=== PATIENT | female | born 1980 | race Caucasian/White ===

== ENCOUNTER → 2019-11-25 08:43 | Outpatient (BNVA) | payer MEDICAID, SELFPAY | PROVIDERS: Family Provider Nurse Practitioner Family; PCP Nurse Practitioner Family; Visit Provider Psychiatry & Neurology Psychiatry | DX: F20.9 Schizophrenia, unspecified (principal) | CPT/HCPCS: 99204 ==

== ENCOUNTER → 2019-12-08 10:25 | Outpatient (BNVA) | payer MEDICAID, SELFPAY | PROVIDERS: Family Provider Nurse Practitioner Family; PCP Nurse Practitioner Family; Visit Provider Psychiatry & Neurology Psychiatry | DX: F20.9 Schizophrenia, unspecified (principal) | CPT/HCPCS: 99213 ==

== ENCOUNTER → 2019-12-11 08:24 | Outpatient (BNVA) | payer MEDICAID, SELFPAY | PROVIDERS: Family Provider Nurse Practitioner Family; PCP Nurse Practitioner Family; Visit Provider Counselor Professional | DX: F20.9 Schizophrenia, unspecified (principal) | CPT/HCPCS: 90834 ==

== ENCOUNTER → 2019-12-18 09:27 | Outpatient (BNVA) | payer MEDICAID, SELFPAY | PROVIDERS: Family Provider Nurse Practitioner Family; PCP Nurse Practitioner Family; Visit Provider Counselor Professional | DX: F20.9 Schizophrenia, unspecified (principal) | CPT/HCPCS: 90834 ==

== ENCOUNTER → 2020-02-03 08:08 | Outpatient (BNVA) | payer MEDICAID, SELFPAY | PROVIDERS: Family Provider Nurse Practitioner Family; PCP Nurse Practitioner Family; Visit Provider Counselor Professional | DX: F20.9 Schizophrenia, unspecified (principal) | CPT/HCPCS: 90834 ==

== ENCOUNTER → 2020-02-12 08:44 | Outpatient (BNVA) | payer MEDICAID, SELFPAY | PROVIDERS: Family Provider Nurse Practitioner Family; PCP Nurse Practitioner Family; Visit Provider Counselor Professional | DX: F20.9 Schizophrenia, unspecified (principal) | CPT/HCPCS: 90834 ==

== ENCOUNTER → 2020-02-19 08:09 | Outpatient (BNVA) | payer MEDICAID, SELFPAY | PROVIDERS: Family Provider Nurse Practitioner Family; PCP Nurse Practitioner Family; Visit Provider Counselor Professional | DX: F20.9 Schizophrenia, unspecified (principal) | CPT/HCPCS: 90834 ==

== ENCOUNTER → 2020-03-02 08:31 | Outpatient (BNVA) | payer MEDICAID, SELFPAY | PROVIDERS: Family Provider Nurse Practitioner Family; PCP Nurse Practitioner Family; Visit Provider Counselor Professional | DX: F20.9 Schizophrenia, unspecified (principal) | CPT/HCPCS: 90834 ==

== ENCOUNTER → 2020-03-09 07:50 | Outpatient (BNVA) | payer MEDICAID, SELFPAY | PROVIDERS: Family Provider Nurse Practitioner Family; PCP Nurse Practitioner Family; Visit Provider Psychiatry & Neurology Psychiatry | DX: F20.9 Schizophrenia, unspecified (principal); F15.21 Other stimulant dependence, in remission | CPT/HCPCS: 99213 ==

== ENCOUNTER → 2020-03-16 08:24 | Outpatient (BNVA) | payer MEDICAID, SELFPAY | PROVIDERS: Family Provider Nurse Practitioner Family; PCP Nurse Practitioner Family; Visit Provider Counselor Professional | DX: F20.9 Schizophrenia, unspecified (principal); F15.21 Other stimulant dependence, in remission | CPT/HCPCS: 90834 ==

== ENCOUNTER → 2020-03-30 08:32 | Outpatient (BNVA) | payer MEDICAID, SELFPAY | PROVIDERS: Family Provider Nurse Practitioner Family; PCP Nurse Practitioner Family; Visit Provider Counselor Professional | DX: F20.9 Schizophrenia, unspecified (principal); F15.21 Other stimulant dependence, in remission | CPT/HCPCS: 90832 ==

== ENCOUNTER → 2020-06-28 08:29 | Outpatient (BNVA) | payer MEDICAID, SELFPAY | PROVIDERS: Family Provider Nurse Practitioner Family; PCP Nurse Practitioner Family; Visit Provider Psychiatry & Neurology Psychiatry | DX: F20.9 Schizophrenia, unspecified (principal); F15.21 Other stimulant dependence, in remission | CPT/HCPCS: 99213 ==

== ENCOUNTER → 2020-07-13 09:46 | Outpatient (BNVA) | payer OTHER, SELFPAY | PROVIDERS: Family Provider Nurse Practitioner Family; PCP Nurse Practitioner Family; Visit Provider Counselor Professional | DX: F15.21 Other stimulant dependence, in remission (principal); F20.9 Schizophrenia, unspecified | CPT/HCPCS: 90834 ==

== ENCOUNTER → 2020-07-29 07:58 | Outpatient (BNVA) | payer MEDICAID, SELFPAY | PROVIDERS: Family Provider Nurse Practitioner Family; PCP Nurse Practitioner Family; Visit Provider Counselor Professional | DX: F20.9 Schizophrenia, unspecified (principal); F15.21 Other stimulant dependence, in remission | CPT/HCPCS: 90834 ==

== ENCOUNTER → 2020-08-17 08:39 | Outpatient (BNVA) | payer OTHER, SELFPAY | PROVIDERS: Family Provider Nurse Practitioner Family; PCP Nurse Practitioner Family; Visit Provider Counselor Professional | DX: F15.21 Other stimulant dependence, in remission (principal); F20.9 Schizophrenia, unspecified | CPT/HCPCS: 90832 ==

== ENCOUNTER → 2020-09-07 08:27 | Outpatient (BNVA) | payer MEDICAID, SELFPAY | PROVIDERS: Family Provider Nurse Practitioner Family; PCP Nurse Practitioner Family; Visit Provider Counselor Professional | DX: F15.21 Other stimulant dependence, in remission (principal); F20.9 Schizophrenia, unspecified | CPT/HCPCS: 90834 ==

== ENCOUNTER 2020-09-08 16:46 | Emergency (ER) | payer MEDICAID, SELFPAY ==
[2020-09-08 16:50] VITALS: BP 106/69; PULSE 98; RESP 16; TEMP 36.8; O2SAT 98; BMI 27.3
--- NOTE | 2020-09-08 17:02 | ED_ITS ---
HPI - Psych General: Chief Complaint: Psychiatric Symptoms Stated Complaint: suicidal, hearing voices Time Seen by Provider: 09/08/20 16:57 Source: patient Mode of arrival: ambulatory Limitations: no limitations History of Present Illness: HPI Narrative: 40-year-old female states she is a history of schizophrenia. States her in the week she was hearing some voices telling her to hurt her self. She states she followed up and had her meds increased and the voices of symptoms stopped. She denies any suicidal ideation states she is not hearing any voices. She states. She had called her and told her she need to come up and be seen by the psychiatrist. Denies any fever. Has no suicidality at this time. Associated symptoms: Reports auditory hallucinations and depression Review of Systems Const: Denies: fever(s), chills, body aches or change in appetite Eyes: Denies: blurry vision or eye discomfort ENMT: Denies: throat pain or dental pain Card: Denies: chest pain Resp: Denies: dyspnea GI: Denies: abdominal pain, nausea, vomiting or diarrhea : Denies: dysuria Musc: Denies: neck pain or back pain Skin/Breast: Denies: rash Neuro: Denies: headache(s) Psych: Reports: depression and auditory hallucinations Yves/Lymph: Denies: easy bruising All/Imm: Denies: urticaria PFSH ED PFSH: Medical History Tubal Surgical History H/O: hysterectomy Social History Smoking and tobacco status: current every day smoker cigarettes Packs smoked per day: 1.5 Years cigarettes smoked: 17 Quit status (tobacco): has tried quititng Number of times tried to quit tobacco: 3 Second hand smoke exposure: Yes Smoking risk assessment/counseling performed?: Yes Tobacco counseling given: counseling >3 minutes Physical Exam Const: COMMON NORMALS: no acute distress, patient oriented x3 and healthy appearing HENMT: COMMON NORMALS: normocephalic and atraumatic HEAD & SCALP: normocephalic and atraumatic Eye: COMMON NORMALS: Equal, round and reactive pupils present and EOMs intact bilaterally PUPIL: Yes Equal, round and reactive pupils present Neck/C-Spine: COMMON NORMALS: full ROM and supple Chest: COMMONS NORMALS: normal inspection of the chest and normal palpation of entire chest wall Resp: COMMON NORMALS: normal respiratory effort, No retractions, No use of accessory muscles and clear to auscultation bilaterally AUSCULTATION: clear to auscultation bilaterally Cardio: COMMON NORMALS: regular rate, regular rhythm and No murmurs present (Cardio) RATE: regular rate RHYTHM: regular rhythm GI: COMMON NORMALS: Normal to inspection, nondistended, normoactive bowel sounds present, Soft to palpation, non-tender and no masses PALPATION: Yes Soft to palpation Extremity: COMMON NORMALS: normal to inspection and full ROM Neuro: COMMON NORMALS: patient oriented x3, moves all extremities and no focal motor deficits Psych: COMMON NORMALS: mental status grossly normal, Normal thought process present and cooperative THOUGHT PROCESS: Normal thought process present Skin: COMMON NORMALS: no rashes or lesions noted and no wounds GENERAL SKIN EXAM: no rashes or lesions noted MDM - Psych MDM Narrative: Medical decision making narrative: Patient presents here with hallucinations that is since resolved. Dr. Ayala who came and saw patient does not not believe she requires admission as her hallucinations improved and she is not suicidal. Patient is stable for discharge is to follow-up with her psychiatrist and return if worsening. Lab Data: Labs: Lab Results 09/08/20 09/08/20 Range/Units 17:12 17:12 HCG, Qual Negative (Negative) Urine Opiates Scre en Positive H (Negative) ng/mL Ur Barbiturates Sc reen Negative (Negative) ng/mL Ur Phencyclidine S crn Negative (Negative) ng/mL Ur Amphetamines Sc reen Positive H (Negative) ng/mL U Benzodiazepines Scrn Negative (Negative) ng/mL Urine Cocaine Scre en Negative (Negative) ng/mL U Marijuana (THC) Screen Negative (Negative) ng/mL Discharge Plan Discharge Patient Disposition: Home Clinical Impression: Auditory hallucination Condition: Stable Prescriptions: No Action duloxetine [Cymbalta] 30 mg capsule,delayed release(DR/EC) 30 mg PO DAILY Qty: 30 RF: 2 risperidone [Risperdal] 1 mg tablet 1 mg PO BID Qty: 60 RF: 2 Tylenol Extra Strength 500 mg Tablet 500 - 1,000 mg PO PRN RF: 0 trazodone 50 mg tablet 100 mg PO BEDTIME RF: 0 Discharge Orders: Discharge Order (Routine); Ordered 09/08/20 Ordered By: Rocío Timmons Referrals: Lottie Landry FNP-C [Primary Care Provider] - Discharge Diet: Advance as tolerated Discharge Activity: Resume usual activity Patient Instructions: Schizophrenia (ED) Discharge Date/Time: 09/08/20 18:01 Coding Level of Care Code ED [employer] Zone Assembler for Arg Fwd Exam Comprehensive
--- NOTE | 2020-09-08 17:52 | PC.NURSE ---
psychiatrist in room to speak with pt
[2020-09-08 17:56] LABS: HCG Qualitative Urine. Negative (Negative)
[2020-09-08 18:05] LABS: Amphetamines Screen Urine Positive (Negative); Barbiturates Screen Urine Negative (Negative); Benzodiazepines Screen Urine Negative (Negative); Cocaine Screen Urine Negative (Negative); Opiate Screen Urine Positive (Negative); PCP Screen Urine Negative (Negative); THC Screen Urine Negative (Negative)
== END 2020-09-08 18:01 | disposition home or self-care (01) ==
PROVIDERS: Emergency Provider Emergency Medicine; PCP Nurse Practitioner Family
DX: R44.0 Auditory hallucinations (principal); F17.210 Nicotine dependence, cigarettes, uncomplicated
CPT/HCPCS: 12345; 80306; 81025; 99284

== ENCOUNTER → 2020-09-14 07:50 | Outpatient (BNVA) | payer OTHER, SELFPAY | PROVIDERS: PCP Nurse Practitioner Family; Visit Provider Psychiatry & Neurology Psychiatry | DX: R44.0 Auditory hallucinations (principal); F15.21 Other stimulant dependence, in remission | CPT/HCPCS: 99213 ==

== ENCOUNTER → 2020-09-23 08:18 | Outpatient (BNVA) | payer MEDICAID, SELFPAY | PROVIDERS: Family Provider Nurse Practitioner Family; PCP Nurse Practitioner Family; Visit Provider Counselor Professional | DX: F15.21 Other stimulant dependence, in remission (principal); F44.0 Dissociative amnesia; F20.9 Schizophrenia, unspecified | CPT/HCPCS: 90832 ==

== ENCOUNTER → 2020-10-07 08:10 | Outpatient (BNVA) | payer MEDICAID, SELFPAY | PROVIDERS: Family Provider Nurse Practitioner Family; PCP Nurse Practitioner Family; Visit Provider Counselor Professional | DX: F15.21 Other stimulant dependence, in remission (principal); F20.9 Schizophrenia, unspecified | CPT/HCPCS: 90834 ==

== ENCOUNTER → 2020-10-12 07:53 | Outpatient (BNVA) | payer MEDICAID, SELFPAY | PROVIDERS: Family Provider Nurse Practitioner Family; PCP Nurse Practitioner Family; Visit Provider Psychiatry & Neurology Psychiatry | DX: F20.9 Schizophrenia, unspecified (principal); F15.21 Other stimulant dependence, in remission; R44.0 Auditory hallucinations | CPT/HCPCS: 99213 ==

== ENCOUNTER → 2020-10-26 08:11 | Outpatient (BNVA) | payer MEDICAID, SELFPAY | PROVIDERS: Family Provider Nurse Practitioner Family; PCP Nurse Practitioner Family; Visit Provider Counselor Professional | DX: F15.21 Other stimulant dependence, in remission (principal); F20.9 Schizophrenia, unspecified | CPT/HCPCS: 90832 ==

== ENCOUNTER → 2020-12-08 11:26 | Outpatient (BNVA) | payer MEDICAID, SELFPAY | PROVIDERS: Family Provider Nurse Practitioner Family; PCP Nurse Practitioner Family; Visit Provider Nurse Practitioner Family | DX: M54.6 Pain in thoracic spine (principal); M54.5 Low back pain; M54.2 Cervicalgia | CPT/HCPCS: 72040; 72072; 72100 ==

== ENCOUNTER → 2021-01-03 08:53 | Outpatient (BNVA) | payer MEDICAID, SELFPAY | PROVIDERS: Family Provider Nurse Practitioner Family; PCP Nurse Practitioner Family; Visit Provider Counselor Professional | DX: F20.9 Schizophrenia, unspecified (principal); F15.21 Other stimulant dependence, in remission | CPT/HCPCS: 90834 ==

== ENCOUNTER → 2021-01-04 08:58 | Outpatient (BNVA) | payer MEDICAID, SELFPAY | PROVIDERS: Family Provider Nurse Practitioner Family; PCP Nurse Practitioner Family; Visit Provider Psychiatry & Neurology Psychiatry | DX: F20.9 Schizophrenia, unspecified (principal); F15.21 Other stimulant dependence, in remission; R44.0 Auditory hallucinations | CPT/HCPCS: 99214 ==

== ENCOUNTER → 2021-01-12 08:19 | Outpatient (BNVA) | payer OTHER, SELFPAY | PROVIDERS: Family Provider Nurse Practitioner Family; PCP Nurse Practitioner Family; Visit Provider Counselor Professional | DX: F15.21 Other stimulant dependence, in remission (principal); F20.9 Schizophrenia, unspecified | CPT/HCPCS: 90832 ==

== ENCOUNTER → 2021-02-03 12:08 | Outpatient (BNVA) | payer MEDICAID, SELFPAY | PROVIDERS: Family Provider Nurse Practitioner Family; PCP Nurse Practitioner Family; Visit Provider Psychiatry & Neurology Psychiatry | DX: F20.9 Schizophrenia, unspecified (principal); F15.21 Other stimulant dependence, in remission; R44.0 Auditory hallucinations | CPT/HCPCS: 99214 ==

== ENCOUNTER → 2021-03-10 08:36 | Outpatient (BNVA) | payer MEDICAID, SELFPAY | PROVIDERS: Family Provider Nurse Practitioner Family; PCP Nurse Practitioner Family; Visit Provider Psychiatry & Neurology Psychiatry | DX: F20.9 Schizophrenia, unspecified (principal); F15.21 Other stimulant dependence, in remission | CPT/HCPCS: 99213 ==

== ENCOUNTER → 2021-05-26 07:41 | Outpatient (BNVA) | payer OTHER, MEDICAID, SELFPAY | PROVIDERS: Family Provider Nurse Practitioner Family; PCP Nurse Practitioner Family; Visit Provider Counselor Professional | DX: F15.21 Other stimulant dependence, in remission (principal); F20.9 Schizophrenia, unspecified | CPT/HCPCS: 90832 ==

== ENCOUNTER → 2021-06-23 10:32 | Outpatient (BNVA) | payer OTHER, MEDICAID, SELFPAY | PROVIDERS: Family Provider Nurse Practitioner Family; PCP Nurse Practitioner Family; Visit Provider Psychiatry & Neurology Psychiatry | DX: F20.9 Schizophrenia, unspecified (principal); F15.21 Other stimulant dependence, in remission | CPT/HCPCS: 99213 ==

== ENCOUNTER → 2021-07-18 09:00 | Outpatient (BNVA) | payer OTHER, SELFPAY | PROVIDERS: Family Provider Nurse Practitioner Family; PCP Nurse Practitioner Family; Visit Provider Counselor Professional | DX: F20.9 Schizophrenia, unspecified (principal); F15.21 Other stimulant dependence, in remission | CPT/HCPCS: 90834 ==

== ENCOUNTER → 2021-07-26 08:23 | Outpatient (BNVA) | payer OTHER, SELFPAY | PROVIDERS: Family Provider Nurse Practitioner Family; PCP Nurse Practitioner Family; Visit Provider Counselor Professional | DX: F20.9 Schizophrenia, unspecified (principal); F15.21 Other stimulant dependence, in remission | CPT/HCPCS: 90832 ==

== ENCOUNTER → 2021-09-02 10:05 | Outpatient (BNVA) | payer OTHER, MEDICAID, SELFPAY | PROVIDERS: Family Provider Nurse Practitioner Family; PCP Nurse Practitioner Family; Visit Provider Psychiatry & Neurology Psychiatry | DX: F20.9 Schizophrenia, unspecified (principal); F15.21 Other stimulant dependence, in remission; M54.2 Cervicalgia; M54.6 Pain in thoracic spine | CPT/HCPCS: 99214 ==

== ENCOUNTER → 2021-09-13 07:36 | Outpatient (BNVA) | payer OTHER, SELFPAY | PROVIDERS: Family Provider Nurse Practitioner Family; PCP Nurse Practitioner Family; Visit Provider Counselor Professional | DX: F15.21 Other stimulant dependence, in remission (principal); F20.9 Schizophrenia, unspecified | CPT/HCPCS: 90832 ==

== ENCOUNTER → 2021-10-11 13:36 | Outpatient (BNVA) | payer OTHER, SELFPAY | PROVIDERS: Family Provider Nurse Practitioner Family; PCP Nurse Practitioner Family; Visit Provider Counselor Professional | DX: F15.21 Other stimulant dependence, in remission (principal); F20.9 Schizophrenia, unspecified | CPT/HCPCS: 90834 ==

== ENCOUNTER → 2021-10-24 08:08 | Outpatient (BNVA) | payer OTHER, SELFPAY | PROVIDERS: Family Provider Nurse Practitioner Family; PCP Nurse Practitioner Family; Visit Provider Counselor Professional | DX: F15.21 Other stimulant dependence, in remission (principal); F20.9 Schizophrenia, unspecified | CPT/HCPCS: 90832 ==

== ENCOUNTER → 2021-11-08 10:38 | Outpatient (BNVA) | payer OTHER, SELFPAY | PROVIDERS: Family Provider Nurse Practitioner Family; PCP Nurse Practitioner Family; Visit Provider Psychiatry & Neurology Psychiatry | DX: F20.9 Schizophrenia, unspecified (principal); F15.21 Other stimulant dependence, in remission | CPT/HCPCS: 99213 ==

== ENCOUNTER → 2021-11-10 07:19 | Outpatient (BNVA) | payer OTHER, SELFPAY | PROVIDERS: Family Provider Nurse Practitioner Family; PCP Nurse Practitioner Family; Visit Provider Counselor Professional | DX: F15.21 Other stimulant dependence, in remission (principal); F20.9 Schizophrenia, unspecified | CPT/HCPCS: 90832 ==

== ENCOUNTER → 2022-02-07 10:03 | Outpatient (BNVA) | payer OTHER, SELFPAY | PROVIDERS: Family Provider Nurse Practitioner Family; PCP Nurse Practitioner Family; Visit Provider Psychiatry & Neurology Psychiatry | DX: F15.21 Other stimulant dependence, in remission (principal); M54.2 Cervicalgia; F20.9 Schizophrenia, unspecified; M54.6 Pain in thoracic spine | CPT/HCPCS: 80307; 99214 ==

== ENCOUNTER 2022-05-09 22:09 | Emergency (ER) | payer MEDICAID, SELFPAY ==
[2022-05-09 22:21] VITALS: BP 123/74; PULSE 107; RESP 18; TEMP 36.7; O2SAT 99; BMI 33.1
--- NOTE | 2022-05-09 22:29 | W.ED.PSYCHS ---
HPI - Psych General: Chief Complaint: Psychiatric Symptoms Stated Complaint: Hearing Voices\Anxiety\Si\Hi Sometimes Time Seen by Provider: 05/09/22 22:20 Source: patient Mode of arrival: ambulatory Limitations: no limitations History of Present Illness: 41-year-old female who has a history of schizophrenia meth abuse and other psych issues she states that she has had increasing hallucinations over the last week and has been having some increased depression. She denies any specific suicidal plans she does admit to recent methamphetamine abuse last night and is caused her hallucinations to be worse patient is able to answer all my questions appropriately. Associated symptoms: Reports auditory hallucinations and depression; Deny suicidal ideation Review of Systems Const: Denies: fever(s), chills, body aches or change in appetite Eyes: Denies: blurry vision or eye discomfort ENMT: Denies: throat pain or dental pain Card: Denies: chest pain Resp: Denies: dyspnea GI: Denies: abdominal pain, nausea, vomiting or diarrhea : Denies: dysuria Musc: Denies: neck pain or back pain Skin/Breast: Denies: rash Neuro: Denies: headache(s) Psych: Reports: depression and auditory hallucinations; Denies: suicidal ideation Yves/Lymph: Denies: easy bruising All/Imm: Denies: urticaria PFSH ED PFSH: Medical History Psychiatric care Tubal Surgical History H/O: hysterectomy Social History Smoking and tobacco status: current every day smoker cigarettes Packs smoked per day: 1.5 Years cigarettes smoked: 18 Quit status (tobacco): has tried quititng Number of times tried to quit tobacco: 3 Second hand smoke exposure: Yes Smoking risk assessment/counseling performed?: No Physical Exam Const: COMMON NORMALS: patient oriented x3 and healthy appearing HENMT: COMMON NORMALS: normocephalic and atraumatic HEAD & SCALP: normocephalic and atraumatic Eye: COMMON NORMALS: Equal, round and reactive pupils present and EOMs intact bilaterally PUPIL: Yes Equal, round and reactive pupils present Neck/C-Spine: COMMON NORMALS: full ROM and supple Chest: COMMONS NORMALS: normal inspection of the chest and normal palpation of entire chest wall Resp: COMMON NORMALS: normal respiratory effort, No retractions, No use of accessory muscles and clear to auscultation bilaterally AUSCULTATION: clear to auscultation bilaterally Cardio: COMMON NORMALS: regular rate, regular rhythm and No murmurs present (Cardio) RATE: regular rate RHYTHM: regular rhythm GI: COMMON NORMALS: Normal to inspection, nondistended, normoactive bowel sounds present, Soft to palpation, non-tender and no masses PALPATION: Yes Soft to palpation Extremity: COMMON NORMALS: normal to inspection and full ROM Neuro: COMMON NORMALS: patient oriented x3, moves all extremities and no focal motor deficits Psych: COMMON NORMALS: mental status grossly normal and cooperative ACTIVITY/MOTOR BEHAVIOR: Yes fidgeting and Yes hyperactivity MOOD & AFFECT: Yes depressed mood THOUGHT CONTENT: No Suicidality present and Yes rumination(s) Skin: COMMON NORMALS: no rashes or lesions noted and no wounds GENERAL SKIN EXAM: no rashes or lesions noted Course Vital Signs: Vital signs: Vital Signs Temperature 98.1 F 05/10/22 01:28 Pulse Rate 91 05/10/22 01:28 Respiratory Rate 16 05/10/22 01:28 Blood Pressure 131/72 05/10/22 01:28 Pulse Oximetry 97 05/10/22 01:28 MDM - Psych Medical Decision Making Patient presents here with methamphetamine abuse likely causing her hallucinations as well. She feels much improved here after Ativan she has had no suicidality denies suicidality here patient originally voluntarily wanted to get help with her drug abuse and hallucinations but she feels improved and would like to go home I feel she is stable for discharge I did discuss with case with Dr. Ayala who agrees patient is to return if worsening. Discharge Plan Discharge Patient Disposition: Home Clinical Impression: Methamphetamine abuse, Auditory hallucinations Condition: Stable Prescriptions: No Action benztropine 1 mg tablet 2 mg PO .HS Qty: 60 2RF bupropion HCl [Wellbutrin XL] 150 mg tablet extended release 24 hr 150 mg PO QAM Qty: 30 2RF duloxetine [Cymbalta] 60 mg capsule,delayed release(DR/EC) 60 mg PO DAILY Qty: 30 2RF risperidone [Risperdal] 2 mg tablet 2 mg PO TID Qty: 90 2RF trazodone 50 mg tablet 100 mg PO BEDTIME Qty: 60 2RF buprenorphine-naloxone 2-0.5 mg tablet, sublingual 2 tab sublingual DAILY Qty: 20 0RF Tylenol Extra Strength 500 mg Tablet 500 - 1,000 mg PO PRN 0RF Discharge Orders: Discharge ED (Routine); Ordered 05/10/22 Ordered By: Rocío Timmons Referrals: Lottie Landry FNP-C [Nurse Practitioner] - Discharge Diet: Advance as tolerated Discharge Activity: Resume usual activity Patient Instructions: Methamphetamine Use Disorder (ED) Coding Level of Care Code ED Full Time Staff Interpreter for Arg Fwd Exam Comprehensive
[2022-05-09] MEDS: LORazepam 2 mg Tablet PO (23:35)
[2022-05-10 01:28] VITALS: BP 131/72; PULSE 91; RESP 16; TEMP 36.7; O2SAT 97
== END 2022-05-10 01:32 | disposition home or self-care (01) ==
PROVIDERS: Emergency Provider Emergency Medicine
DX: F15.151 Other stimulant abuse with stimulant-induced psychotic disorder with hallucinations (principal); F17.210 Nicotine dependence, cigarettes, uncomplicated
CPT/HCPCS: 99283

== ENCOUNTER 2022-08-07 16:32 | Inpatient (IN) | payer MEDICAID, SELFPAY ==
[2022-08-07 16:36] VITALS: BMI 28.3
--- NOTE | 2022-08-07 17:28 | W.ED.PSYCHS ---
HPI - Psych General: Chief Complaint: Psychiatric Symptoms Stated Complaint: HALLUCINATIONS Time Seen by Provider: 08/07/22 16:32 Source: patient Mode of arrival: ambulatory Limitations: no limitations History of Present Illness: 42 yo female present with EMS after family had concenrs and [facility] reported pt had auditory and visual halluciantions. We will to get any history from the patient when she arrives here she is very verbally aggressive refuses to answer any questions. Only called EMS and law enforcement at [place] where she had been brought here from we are told that law enforcement had given her the option of either going with EMS or they would take her to the emergency room in handcuffs she elected to go by EMS. She has previously had a history of methamphetamine abuse. She is unable to give us her refuses to give us any history. On we contacted law enforcement they advised they were in the process of getting a 96-hour hold and will fax it here as soon as it was available. MD complaint: suicidal ideation Onset (ago): unknown Duration: constant History of same: Yes Relieving factors: none Exacerbating factors: none Associated symptoms: Reports auditory hallucinations and visual hallucinations Treatments prior to arrival: none Review of Systems General: Reports: ROS unobtainable due to mental status Psych: Reports: visual hallucinations and auditory hallucinations PFS ED PFSH: Medical History Psychiatric care Tubal Surgical History H/O: hysterectomy Social History Smoking and tobacco status: current every day smoker cigarettes Packs smoked per day: 1.5 Years cigarettes smoked: 18 Quit status (tobacco): has tried quititng Number of times tried to quit tobacco: 3 Second hand smoke exposure: Yes Smoking risk assessment/counseling performed?: No Physical Exam Const: ORIENTATION/CONSCIOUSNESS: Yes awake HENMT: COMMON NORMALS: normocephalic, atraumatic and hearing grossly normal bilaterally HEAD & SCALP: normocephalic and atraumatic Resp: COMMON NORMALS: normal respiratory effort, No retractions, No use of accessory muscles and clear to auscultation bilaterally AUSCULTATION: clear to auscultation bilaterally Cardio: COMMON NORMALS: regular rate, regular rhythm and No murmurs present (Cardio) RATE: regular rate RHYTHM: regular rhythm GI: COMMON NORMALS: Soft to palpation and No hepatosplenomegaly present AUSCULTATION: Yes normoactive bowel sounds PALPATION: Yes Soft to palpation, No Tenderness to palpation present (GI), No Guarding due to palpation present (GI) and Yes No hepatosplenomegaly present Extremity: COMMON NORMALS: normal to inspection, capillary refill normal, no clubbing, cyanosis or edema, no calf tenderness and no pedal edema Skin: COMMON NORMALS: no rashes or lesions noted GENERAL SKIN EXAM: no rashes or lesions noted Course Vital Signs: Vital signs: Vital Signs Temperature 98.2 F 08/07/22 21:17 Pulse Rate 116 H 08/07/22 21:17 Respiratory Rate 16 08/08/22 06:00 Blood Pressure 109/78 08/07/22 21:17 Pulse Oximetry 98 08/07/22 21:17 Oxygen Delivery Me thod 08/07/22 21:17 [facility] - Psych Medical Decision Making 96-hour hold by the court paperwork reviewed. Discussed with Dr. Desai orders written will admit for acute psychosis. Medical Records I reviewed the patient's medical records. Lab Data I reviewed the patient's lab results. : 08/07/22 18:10 08/07/22 18:10 Laboratory Results Ethyl Alcohol < 10 mg/dL (0-10) 08/07/22 18:00 Discharge Plan Discharge Patient Disposition: Admitted As Inpatient Admit Provider: Catrachito Leary Clinical Impression: Acute psychosis, Amphetamine use disorder, severe, in early remission Condition: Stable Coding Level of Care Code ED Lab Asst for Chg Fwd Exam Detailed
[2022-08-07 18:16] VITALS: BP 113/68; PULSE 132; RESP 20; TEMP 36.8; O2SAT 98
[2022-08-07] MEDS: LORazepam 2 mg/mL INJ 1 mL IM (18:33)
[2022-08-07] MEDS: diphenhydrAMINE 50 mg/mL SDV 1mL IM (18:33)
[2022-08-07] MEDS: haloperidol inj 5 mg/mL INJ 1 mL IM (18:33)
[2022-08-07 18:36] LABS: Basophils % 0.3 %; Eosinophils # 0.1 10^3/uL (0.0-0.8); Eosinophils % 0.9 %; Hematocrit 42.4 % (37.0-47.0); Lymphocytes # 3.5 10^3/uL (0.8-4.8); Lymphocytes % 27.3 %; Mean Corpuscular Hemoglobin 30.9 pg (28.0-34.0); Mean Corpuscular Volume 93.6 fl (81-99); Mean Platelet Volume 9.7 fL (7.4-10.4); Monocytes # 0.7 10^3/uL (0.2-0.9); Monocytes % 5.5 %; Neutrophils # 8.43 10^3/uL (1.8-7.7); Neutrophils % 65.7 %; Nucleated Red Blood Cells % 0 %; Platelet Count 260 10^3/cmm (130-400); Red Blood Count 4.53 10^6/uL (4.1-5.3); Red Cell Distribution Width 13.4 % (12.1-15.1); White Blood Count 12.8 10^3/uL (4.0-10.0)
[2022-08-07 18:57] LABS: Alanine Aminotransferase 17 U/L (0-33); Albumin Level 4.5 g/dL (3.5-5.2); Alkaline Phosphatase 65 U/L (35-105); Anion Gap 15.6 (5-19); Aspartate Amino Transferase 23 U/L (0-32); Blood Urea Nitrogen 11 mg/dL (6-20); Calcium 9.4 mg/dL (8.5-10.5); Carbon Dioxide 22 mmol/L (22-29); Chloride 102 mmol/L (98-107); Globulin 2.9 g/dL (1.3-4.6); Glomerular Filtration Rate 110.7 mL/min (90-130); Glucose 85 mg/dL (65-115); Osmolality Calculated 281 mOsm/kg (285-295); Potassium 3.6 mmol/L (3.5-5.1); Sodium 136 mmol/L (136-145); Total Bilirubin 0.5 mg/dL (0.15-1.2); Total Protein 7.4 g/dL (6.6-8.7)
[2022-08-07 18:59] LABS: Acetaminophen < 5.0 ug/mL (10-30); Salicylate < 0.3 mg/dL (3-10)
[2022-08-07 19:13] LABS: Alcohol Level < 10 mg/dL (0-10)
[2022-08-07 21:07] LABS: HCG Qualitative Urine. Negative (Negative)
[2022-08-07 21:16] LABS: Amphetamines Screen Urine Positive (Negative); Barbiturates Screen Urine Negative (Negative); Benzodiazepines Screen Urine Positive (Negative); Cocaine Screen Urine Negative (Negative); Opiate Screen Urine Positive (Negative); PCP Screen Urine Negative (Negative); THC Screen Urine Negative (Negative)
[2022-08-07 21:17] VITALS: BP 109/78; PULSE 116; RESP 18; TEMP 36.8; O2SAT 98
[2022-08-08 06:00] VITALS: RESP 16
--- NOTE | 2022-08-08 08:22 | P.NPUHP_ITS ---
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 Allegedly, the patient's child had informed staff at at the school that he attends that Selene was hearing voices telling her to hurt this child. The patient had allegedly shown up in the school at the school and shortly afterwards the police had picked her up and taken her to [facility]. The patient's ACI had received a call from the school counselor and the patient's son had reported to that counselor that the mother had been hearing voices telling her to harm herself and engaged in negative derogatory statements tow ards the patient. The patient had revealed to the ACI that she had not been on her psychiatric medications for several days. She was placed on a 96-hour hold and was placed on the neuropsychiatric unit for definitive treatment and evaluation. She is unable to provide any reasonable detailed history on interview both briefly in the emergency department and upon arrival at the NPU. Psychiatric History: see below, most recent outpatient psychiatric visit was at [facility] in February 2022. Previous records reveal psychiatric medications including Risperdal 2 mg 3 times a day Cymbalta 60 mg daily trazodone 100 mg at night Wellbutrin 150 mg in the morning and Cogentin 2 mg at night patient has a history of. Multiple inpatient hospitalizations with a history of psychotic symptoms that appear to have been initially induced by methamphetamine. Current Medications: none Medical history: History of back pain Surgeries: None Allergies: No known drug allergies Family History: Father had schizophrenia and committed suicide she also had a history of bipolar in other family members. Drug and Alcohol History: per previous records, the patient had begun methamphetamine use periodically at the age of 18 throughout her 20s and reported heavy use beginning around the age of 37. Previous records support that the patient continues to use methamphetamine periodically. She had also reported active use of opiates beginning as a teenager through oral intake and examination of previous records indicate the patient has had some opiate related withdrawals symptoms. Previous records also indicate that the patient had developed significant psychotic symptoms that persisted even in the absence of her methamphetamine use but particularly worse during active use. Alcohol and marijuana has been used periodically since she was a teenager. Social History: See previous records below, as patient unable to provide any details. Previous Evaluation from November [address] Deluna at [facility] Chief Complaint: I was hearing voices and was hospitalized with suicidal ideations History of Present Illness: This is a 39-year-old white female who had no past psychiatric history previous to 2018.? She now carries a diagnosis of schizophrenia after being hospitalized a total of 4 times over the last 15 months including 3 times in [facility] for 1 to 2 weeks at a time and a 4-day admission September 2019@[facility] for 4 days in the context of hearing voices having suicidal ideations and taking an overdose on Tylenol PM.? Patient says she started having problems hearing voices approximately 1 year ago.? This was in the context of heavy methamphetamine use.? She says she first used meth around age 18 and used off and on throughout her 20s but starting about 2 years ago her and her fianc? started daily heavy use and she subsequently developed hallucinations about a year into that use pattern.? Previous to this meth binge she had had no hallucinations or delusions in the past no previous psychiatric treatment or exposure.? She has a father who has a history of schizophrenia and committed suicide there is also bipolar in the family and is unclear if those are substance related as well.? What is clear is that her heavy methamphetamine use most likely solely responsible for her psychotic symptoms.? At this point she is diagnosed with schizophrenia for lack of a better term because she is been sober from meth since April 2019 however I would classify this is substance-induced psychosis that is now persistent.? She tells me she been sober from all substances since April 2019 when she was hospitalized in September she was positive for opioids tells me that she is also taking hydrocodone from the street at least 3 to 4 pills a day for a number of years.? She is also been a marijuana and alcohol user off and on throughout her life.? Currently she tells me that she is no longer hearing voices since s tarting consistently taking Haldol in September 2019.? She is sleeping 8 hours a night and denies any current suicidal thoughts overall psychiatric perspective she is doing quite well however she is having significant mood related problems related to her taking of Haldol most likely.? She exhibits significant head arm and leg movements throughout the appointment says this started in October which is about 1 month after she was taking Haldol consistently. History Past Psychiatric History: She been hospitalized 4 times in the last 15 months 3 times in [facility] and [place] [facility] [place] The admissions range from 4 days to 2 weeks for psychotic symptoms such as hearing voices and at times suicidal thoughts.? The voice that she tends to hear her multiple and varied and at times were commanding in nature. Medications been treated on Haldol, mirtazapine, and Cogentin. Family History: Father had schizophrenia and committed suicide she also had a history of bipolar in other family members. Past Medical History: She has some back pain Substance Use History: Methamphetamine: She first used at age 18 use periodically throughout her 20s at age 37 started using heavy daily use for approximately 2 years.? Last use was April 2019 Opioids: Started taking opioid pills as a teenager is used periodically throughout her life 3 to 4 pills a day for the last 4 years has been her most recent use.? She is currently taking some opioids by prescription for dental reasons but says she has not taking illicit opioids since April 2019 however she did test positive in September. Alcohol and marijuana: She is used periodically since he was a teenager but denies current use.? She has been a heavy user at times in the past ? Social History: Dropped out of school in eighth grade when she got and received her GED. She had been and had one year of college she is been twice she has 3 children in total ages 21 and 17 a 17-year-old currently lives with her father.? She also has a 5-year-old with her current fianc? who her mother has while the patient has been having substance and emotional difficulties.? 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 Previous Hospitalization at [facility] in November of 2018: Dr. Ayala Chief Complaint: I tried to kill myself. ? I got tired of hearing voices. HPI: History of present illness: Kendra Vigil is a 39-year-old woman who was admitted to the psychiatric unit after she apparently overdosed on Tylenol PM.? She is not considered a reliable informant as she does not provide coherent details of the events leading up to her overdose.? She says that she was hearing voices? but they were not commanding her to to end her life or to do anything dangerous.? She cannot give an explanation of the events leading to her overdose or her thinking at the time.? It is not even clear whether this was an overdose.? She denies suicidal or homicidal ideation at this time.? She reports that she hears voices that are multiple voices.? She thinks that she might know they are they are disguising her voice.? She says that they don't tell her what to do or give her commands but they seem to take over her body.? For example, they make her dance.? She would not elaborate.? She engages in Keiko and enjoyable activity.? She denies that she is depressed though she is distressed over her current romantic relationship.? She has had a problem with abuse of a variety of substances in the past.? She is proud that she has gotten off of everything pain pills.? She takes hydrocodone 3-4 day .? Urine drug screen was positive only for opiates.? She is displaying no signs of withdrawal. Historically, the patient reports no mental health history up until approximately 7 months ago.? At that time she began hearing voices.? Prior to that she had never seen a psychiatrist or been in counseling.? She never been hospitalized.? 3 months ago she was hospitalized at [facility] for 3 weeks.? They told her that she had schizophrenia and started on her on medication for voices.? She said that they help but she eventually ran out of prescription.? She is now been off of it for a month.? She is not remember the name medication.? She does not remember any side effects.? She did take it twice a day.? She says that it was effective. Item Value ?Date Time Urine Opiates Screen POSITIVE ng/mL H 09/07/19 151 Urine Barbiturates Screen NEGATIVE ng/mL 09/07/19 151 Urine Phencyclidine Screen NEGATIVE ng/mL 09/07/19 151 Urine Amphetamines Screen NEGATIVE ng/mL 09/07/19 151 Urine Benzodiazepines Screen NEGATIVE ng/mL 09/07/19 151 Urine Cocaine Screen NEGATIVE ng/mL 09/07/19 151 Urine Marijuana (THC) Screen NEGATIVE ng/mL 11/3/19 1516 Ethyl Alcohol Level < 10 mg/dL 09/07/19 1515 Vital Signs Label Value ?Date Time Blood Pressure Assessment 93/55 (67) 09/08/19 1236 ? Source Automatic Cuff ? Pulse 101 09/08/19 1236 ? Location Left Radial ? Emergency room note: Chief Complaint: ANXIOUS, BEHAVIOR CHANGE and SUICIDAL THOUGHTS and DELUSIONAL and AUDITORY HALLUCINATIONS.? This started last night.? (39 yo female presents to ED with complaints of anxiety, suicidal thoughts, delusions, auditory hallucinations and bizarre behavior. The patient states she woke up and felt a little confused. She said she did not want to go to sleep after she took the Tylenol PM (she took 2). Her boyfriend states she has been hearing voices for a while. She and her boyfriend state she has plans of harming herself but has no specific plan. She said she thought people were coming after her so she got a little scared. She said sometimes the pain is overwhelming, it goes to the back and then to the top of her head. She then began rubbing the top of her head/picking at her head.).? Mental health history: See above.? Family mental health history is negative. Social history: Patient grew up in [place].? She did not graduate from high school but got her GED and has taken some college classes.? She currently lives with her boyfriend out.? Their relationship is roosevelt.? She denies any history of physical or emotional abuse.? She alludes to the likelihood that he has a significant drug abuse problem.? However she is very unclear on their relationship.? She has no children.? She works 9 hours a week but did not understand her was that she worked. Legal history: Public record indicates no criminal activity.? However she has had considerable financial difficulty and appears to have had a lawsuit filed against her within the past month by [employer]. Past medical history: She is status post hysterectomy.? I refer you to her emergency room notes for further medical details. Meds NPU Home Medications Medication Instructions Recorded Confirmed Last Taken Type acetaminophen 500 mg tablet 500 - 1,000 mg PO PRN 09/08/20 08/07/22 Unknown History (Tylenol Extra Strength) bupropion HCl 150 mg 24 hr tablet, 150 mg PO QAM #30 tabs 02/07/22 08/07/22 Unknown Rx extended release (Wellbutrin XL) duloxetine 60 mg capsule,delayed 60 mg PO DAILY #30 caps 02/07/22 08/07/22 Unknown Rx release (Cymbalta) risperidone 2 mg tablet (Risperdal) 2 mg PO TID #90 tabs 02/07/22 08/07/22 Unknown Rx trazodone 50 mg tablet 100 mg PO BEDTIME #60 tabs 02/07/22 08/07/22 Unknown Rx benztropine 1 mg tablet 2 mg PO BEDTIME 08/07/22 08/07/22 Unknown History Allergies Allergy/AdvReac Type Severity Reaction Status Date / Time No Known Allergies Allergy Verified 02/07/22 10:27 PFS NPU PFSH: Medical History Psychiatric care Tubal Surgical History H/O: hysterectomy Social History Smoking and tobacco status: current every day smoker cigarettes Packs smoked per day: 1.5 Years cigarettes smoked: 18 Quit status (tobacco): has tried quititng Number of times tried to quit tobacco: 3 Second hand smoke exposure: Yes Smoking risk assessment/counseling performed?: No Mental Status Exam MSE Comments: She is a disheveled white female who appeared her stated age poor hygiene poor dentition she was alert and oriented to name but not place or situation. She was unable to provide answers to many questions. She did not answer in regards to her mood. her affect affect appeared labile with a wide range and intense. Her thought process was nonlinear with the use of non sequiturs thought content showed no active homicidal or suicidal ideation revealed. She did appear to be responding to internal stimuli with active paranoia and clear evidence of poor impulse control as she had significant verbal outburst of vocal grunting. Her insight was feeble. Her judgment is clearly impaired. Her attention was impaired. There was abnormal saccadic intense brief jerking movements appreciated. Vitals/I&O/Wt Last Vital Signs Temp 98.2 F 08/07/22 21:17 Pulse 116 H 08/07/22 21:17 Resp 16 08/08/22 06:00 BP 109/78 08/07/22 21:17 Pulse Ox 98 08/07/22 21:17 O2 Del Method 08/07/22 21:17 Weight last 48 hrs Weight 63.503 kg Data NPU : 08/07/22 18:10 08/07/22 18:10 A&P Assessment and plan (1) Acute psychosis: (2) Substance-induced psychotic disorder: (3) Auditory hallucinations: Plan Patient is a 42-year-old white female with a history of methamphetamine induced psychotic disorder currently actively psychotic on a 96-hour hold after reports of patient having command auditory hallucinations to hurt her son and clear evidence of noncompliance recently with her psychotropic medications. 1.? Will attempt to reintroduce previous antipsychotic prescribed on outpatient basis to target active psychosis (likely risperidone) 2.? Encourage individual, group and milieu therapy 3.? Continue q-15 minute check for safety 4. Recommend sober living treatment at the highest level of care to which the patient is willing to commit. Attestations NPU Medical Necessity Statement*: Inpatient hospitalization is medically necessary and the clinically appropriate intervention at this time. We will monitor medications and make changes as indicated. Patient will be in the hospital for over two midnights. Likely length of stay is 7-10 days. Coding Level of Care Code New Pt Acute Hospice Chaplain for Louis Younger Patient Type New History Problem Focused Exam Problem Focused Medical Decision Making Straight Forward Diagnoses Acute psychosis F23 Substance-induced psychotic disorder F19.959 Auditory hallucinations R44.0
--- NOTE | 2022-08-08 08:52 | PC.OT ---
OT EVALUATION ATTEMPTED; PATIENT IS SEDATED AND UNABLE TO PARTICIPATE AT THIS TIME.
[2022-08-08] MEDS: nicotine 2 mg Gum BUCCAL ×2 (10:57→16:58)
[2022-08-08 14:00] VITALS: RESP 16
[2022-08-08] MEDS: acetaminophen 325 mg Tablet 650 MG PO (14:42)
[2022-08-08] MEDS: haloperidol 5 mg Tablet PO (14:47)
[2022-08-08 20:49] VITALS: BP 100/64; PULSE 77; RESP 17; TEMP 36.9; O2SAT 98
[2022-08-09 06:00] VITALS: BP 105/70; PULSE 84; RESP 17; TEMP 36.8; O2SAT 96
[2022-08-09] MEDS: OLANZapine 5 mg ODT PO (09:12)
[2022-08-09] MEDS: ARIPiprazole 10 mg Tablet 5 MG PO (10:08)
[2022-08-09] MEDS: acetaminophen 325 mg Tablet 650 MG PO (10:10)
[2022-08-09] MEDS: cetylpyridinium Lozenge 1 EACH MUCOUS MEM ×3 (12:07→18:41)
[2022-08-09] MEDS: diphenhydrAMINE 50 mg Capsule PO ×2 (12:07→17:06)
[2022-08-09 14:00] VITALS: BP 109/73; PULSE 104; RESP 17; TEMP 36.7; O2SAT 98
--- NOTE | 2022-08-09 14:55 | P.NPUPN_ITS ---
Subjective NPU Subjective: The patient is a 42-year-old white female with a history of methamphetamine induced psychotic disorder who was admitted with depressed mood and command auditory hallucinations. The patient had been lying in bed and continued to be isolative on the milieu. She had reported that she did not re member anything that had led to her being hospitalized. She had described having problems with paranoia and hearing voices that appear to worsen after she had discontinued her Risperdal 6 mg daily. She reported that she felt like she wanted to do without that medication as she had stated that she had felt excessively tired on that. She had acknowledged having significant mental health issues leading to multiple hospitalizations over the past 5 years with her inpatient hospitalizations having been frequently tied into her methamphetamine use. Mental Status Exam MSE Comments: She is a disheveled white female who appeared her stated age,poor hygiene, and poor dentition. She was alert and oriented to person and place today. Her mood was described as okay. Her affect was labile alternating between irritability and uncontrollable crying. There was increased latency in her speech. There was some evidence of paranoia and she did at times appear to be responding to internal stimuli. Her attention appeared impaired. Her insight was poor. Her judgment is poor. Her impulse control appeared limited. She denied any homicidal or suicidal ideation . Vitals/I&O/Wt Last Vital Signs Temp 98.2 F 08/09/22 06:00 Pulse 84 08/09/22 06:00 Resp 17 08/09/22 06:00 BP 105/70 08/09/22 06:00 Pulse Ox 96 08/09/22 06:00 O2 Del Method 08/09/22 06:00 Weight last 48 hrs Weight 63.503 kg Data NPU : 08/07/22 18:10 08/07/22 18:10 A&P Assessment and plan (1) Acute psychosis: (2) Substance-induced psychotic disorder: (3) Auditory hallucinations: Plan Patient is a 42-year-old white female with a history of methamphetamine induced psychotic disorder currently actively psychotic on a 96-hour hold after reports of patient having command auditory hallucinations to hurt her son and clear evidence of noncompliance recently with her psychotropic medications. 1.? Will increase abilify to 10mg daily and add lexapro 10mg in am to target depressed mood. 2.? Encourage individual, group and milieu therapy 3.? Continue q-15 minute check for safety 4. Recommend sober living treatment at the highest level of care to which the patient is willing to commit. Attestations NPU Medical Necessity Statement*: Inpatient hospitalization is medically necessary and the clinically appropriate intervention at this time. We will monitor medications and make changes as indicated with likely length of stay of 7-10 days. Coding Level of Care Code Established Pt Acute Addictions Therapist for Louis Younger Patient Type Established History Problem Focused Exam Problem Focused Medical Decision Making Straight Forward Diagnoses Acute psychosis F23 Substance-induced psychotic disorder F19.959 Auditory hallucinations R44.0
[2022-08-09] MEDS: ibuprofen 600 mg Tablet PO (15:03)
[2022-08-09] MEDS: haloperidol 5 mg Tablet PO (17:06)
[2022-08-09] MEDS: trazodone 50 mg Tablet PO (20:23)
[2022-08-09 21:06] VITALS: BP 112/79; PULSE 100; RESP 18; TEMP 36.7
[2022-08-10 06:00] VITALS: BP 108/71; PULSE 82; RESP 16; TEMP 37; O2SAT 96
[2022-08-10] MEDS: ARIPiprazole 10 mg Tablet PO (08:17)
[2022-08-10] MEDS: escitalopram 10 mg Tablet PO (08:18)
--- NOTE | 2022-08-10 09:40 | W.PM.NPUPNS ---
Subjective NPU Subjective: Patient was in today reporting that she is feeling better. Staff denied ongoing psychosis. She identified that her use of methamphetamine as a contributor to her psychosis which she denies having at this point. It appeared that she is doing much better than the previous couple of days. Her 96-hour hold is up tomorrow and we discussed that he would not be pursuing an extension of that hold. Mental Status Exam MSE Comments: This is an overweight white female with adequate eye contact and limited grooming. In hospital scrubs. Poor dentition. No abnormal movements except for mild psychomotor retardation. Cooperative with exam in no acute distress. Speech was slightly decreased rate and volume. Mood described as much better, affect euthymic. Thought process organized. Thought content: Patient denied suicidal or homicidal ideation, there were no delusions reported noted, she denied auditory or visual hallucinations. Attention and concentration appeared intact and memory appeared reliable but none were formally tested. She alert and oriented x3. Insight and judgment appeared improving and impulse control limited. Vitals/I&O/Wt Last Vital Signs Temp 98.6 F 08/10/22 06:00 Pulse 82 08/10/22 06:00 Resp 16 08/10/22 06:00 BP 108/71 08/10/22 06:00 Pulse Ox 96 08/10/22 06:00 O2 Del Method 08/10/22 06:00 Data NPU : 08/07/22 18:10 08/07/22 18:10 A&P Assessment and plan (1) Acute psychosis: (2) Substance-induced psychotic disorder: (3) Auditory hallucinations: Plan Patient is a 42-year-old white female with a history of methamphetamine induced psychotic disorder currently actively psychotic on a 96-hour hold after reports of patient having command auditory hallucinations to hurt her son and clear evidence of noncompliance recently with her psychotropic medications. 1. Continue current medication. Increased abilify to 10mg daily and added lexapro 10mg in am to target depressed mood. 2.? Encourage individual, group and milieu therapy 3.? Continue q-15 minute check for safety 4. Recommend sober living treatment at the highest level of care to which the patient is willing to commit. Attestations NPU Medical Necessity Statement*: Inpatient hospitalization is medically necessary and the clinically appropriate intervention at this time. We will monitor medications and make changes as indicated with likely length of stay of 1-2 days. Coding Level of Care Code Acute Material Handling Warehouse Supervisor for [employer] Fwd Diagnoses Acute psychosis F23 Substance-induced psychotic disorder F19.959 Auditory hallucinations R44.0
[2022-08-10] MEDS: acetaminophen 325 mg Tablet 650 MG PO ×2 (11:36→16:07)
[2022-08-10] MEDS: cetylpyridinium Lozenge 1 EACH MUCOUS MEM ×3 (13:29→21:45)
--- NOTE | 2022-08-10 13:29 | PC.NURSE ---
PRN CEPACOL 1 LOZENGE GIVEN PO PER PT C/O SORE THROAT
[2022-08-10 14:00] VITALS: BP 111/75; PULSE 93; RESP 18; O2SAT 96
[2022-08-10] MEDS: diphenhydrAMINE 50 mg Capsule PO (18:16)
--- NOTE | 2022-08-10 18:17 | PC.NURSE ---
PRN BENADRYL 50 MG GIVEN PO PER PT C/O STATED ALLERGIES. WILL CONT TO MONITOR
[2022-08-10 20:43] VITALS: BP 112/75; PULSE 87; RESP 16; TEMP 36.7; O2SAT 98
[2022-08-11 06:00] VITALS: BP 100/66; PULSE 84; RESP 18; TEMP 36.9; O2SAT 95
[2022-08-11] MEDS: ARIPiprazole 10 mg Tablet PO (08:35)
[2022-08-11] MEDS: escitalopram 10 mg Tablet PO (08:36)
--- NOTE | 2022-08-11 09:57 | W.PM.NPUDCS ---
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 Allegedly, the patient's child had informed staff at at the school that he attends that Selene was hearing voices telling her to hurt this child. The patient had allegedly shown up in the school at the school and shortly afterwards the police had picked her up and taken her to [facility]. The patient's ACI had received a call from the school counselor and the patient's son had reported to that counselor that the mother had been hearing voices telling her to harm herself and engaged in negative derogatory statements towards the patient. The patient had revealed to the ACI that she had not been on her psychiatric medications for several days. She was placed on a 96-hour hold and was placed on the neuropsychiatric unit for definitive treatment and evaluation. She is unable to provide any reasonable detailed history on interview both briefly in the emergency department and upon arrival at the NPU. Psychiatric History: see below, most recent outpatient psychiatric visit was at [facility] in February 2022. Previous records reveal psychiatric medications including Risperdal 2 mg 3 times a day Cymbalta 60 mg daily trazodone 100 mg at night Wellbutrin 150 mg in the morning and Cogentin 2 mg at night patient has a history of. Multiple inpatient hospitalizations with a history of psychotic symptoms that appear to have been initially induced by methamphetamine. Current Medications: none Medical history: History of back pain Surgeries: None Allergies: No known drug allergies Family History: Father had schizophrenia and committed suicide she also had a history of bipolar in other family members. Drug and Alcohol History: per previous records, the patient had begun methamphetamine use periodically at the age of 18 throughout her 20s and reported heavy use beginning around the age of 37. Previous records support that the patient continues to use methamphetamine periodically. She had also reported active use of opiates beginning as a teenager through oral intake and examination of previous records indicate the patient has had some opiate related withdrawals symptoms. Previous records also indicate that the patient had developed significant psychotic symptoms that persisted even in the absence of her methamphetamine use but particularly worse during active use. Alcohol and marijuana has been used periodically since she was a teenager. Social History: See previous records below, as patient unable to provide any details. Previous Evaluation from November [address] Deluna at [facility] Chief Complaint: I was hearing voices and was hospitalized with suicidal ideations History of Present Illness: This is a 39-year-old white female who had no past psychiatric history previous to 2018. She now carries a diagnosis of schizophrenia after being hospitalized a total of 4 times over the last 15 months including 3 times in [place] for 1 to 2 weeks at a time and a 4-day admission September 2019@[facility] for 4 days in the context of hearing voices having suicidal ideations and taking an overdose on Tylenol PM. Patient says she started having problems hearing voices approximately 1 year ago. This was in the context of heavy methamphetamine use. She says she first used meth around age 18 and used off and on throughout her 20s but starting about 2 years ago her and her fianc? started daily heavy use and she subsequently developed hallucinations about a year into that use pattern. Previous to this meth binge she had had no hallucinations or delusions in the past no previous psychiatric treatment or exposure. She has a father who has a history of schizophrenia and committed suicide there is also bipolar in the family and is unclear if those are substance related as well. What is clear is that her heavy methamphetamine use most likely solely responsible for her psychotic symptoms. At this point she is diagnosed with schizophrenia for lack of a better term because she is been sober from meth since April 2019 however I would classify this is substance-induced psychosis that is now persistent. She tells me she been sober from all substances since April 2019 when she was hospitalized in September she was positive for opioids tells me that she is also taking hydrocodone from the street at least 3 to 4 pills a day for a number of years. She is also been a marijuana and alcohol user off and on throughout her life. Currently she tells me that she is no longer hearing voices since starting consistently taking Haldol in September 2019. She is sleeping 8 hours a night and denies any current suicidal thoughts overall psychiatric perspective she is doing quite well however she is having significant mood related problems related to her taking of Haldol most likely. She exhibits significant head arm and leg movements throughout the appointment says this started in October which is about 1 month after she was taking Haldol consistently. History Past Psychiatric History: She been hospitalized 4 times in the last 15 months 3 times in [place] [facility] admissions range from 4 days to 2 weeks for psychotic symptoms such as hearing voices and at times suicidal thoughts. The voice that she tends to hear her multiple and varied and at times were commanding in nature. Medications been treated on Haldol, mirtazapine, and Cogentin. Family History: Father had schizophrenia and committed suicide she also had a history of bipolar in other family members. Past Medical History: She has some back pain Substance Use History: Methamphetamine: She first used at age 18 use periodically throughout her 20s at age 37 started using heavy daily use for approximately 2 years. Last use was April 2019 Opioids: Started taking opioid pills as a teenager is used periodically throughout her life 3 to 4 pills a day for the last 4 years has been her most recent use. She is currently taking some opioids by prescription for dental reasons but says she has not taking illicit opioids since April 2019 however she did test positive in September. Alcohol and marijuana: She is used periodically since he was a teenager but denies current use. She has been a heavy user at times in the past Social History: Dropped out of school in eighth grade when she got and received her GED. She had been and had one year of college she is been twice she has 3 children in total ages 21 and 17 a 17-year-old currently lives with her father. She also has a 5-year-old with her current fianc? who her mother has while the patient has been having substance and emotional difficulties. 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 Previous Hospitalization at [facility] in November of 2018: Dr. Ayala Chief Complaint: I tried to kill myself. I got tired of hearing voices. HPI: History of present illness: Kendra Vigil is a 39-year-old woman who was admitted to the psychiatric unit after she apparently overdosed on Tylenol PM. She is not considered a reliable informant as she does not provide coherent details of the events leading up to her overdose. She says that she was hearing voices but they were not commanding her to to end her life or to do anything dangerous. She cannot give an explanation of the events leading to her overdose or her thinking at the time. It is not even clear whether this was an overdose. She denies suicidal or homicidal ideation at this time. She reports that she hears voices that are multiple voices. She thinks that she might know they are they are disguising her voice. She says that they don't tell her what to do or give her commands but they seem to take over her body. For example, they make her dance. She would not elaborate. She engages in Keiko and enjoyable activity. She denies that she is depressed though she is distressed over her current romantic relationship. She has had a problem with abuse of a variety of substances in the past. She is proud that she has gotten off of everything pain pills. She takes hydrocodone 3-4 day . Urine drug screen was positive only for opiates. She is displaying no signs of withdrawal. Historically, the patient reports no mental health history up until approximately 7 months ago. At that time she began hearing voices. Prior to that she had never seen a psychiatrist or been in counseling. She never been hospitalized. 3 months ago she was hospitalized at [facility] for 3 weeks. They told her that she had schizophrenia and started on her on medication for voices. She said that they help but she eventually ran out of prescription. She is now been off of it for a month. She is not remember the name medication. She does not remember any side effects. She did take it twice a day. She says that it was effective. Item Value Date Time Urine Opiates Screen POSITIVE ng/mL H 09/07/19 1516 Urine Barbiturates Screen NEGATIVE ng/mL 09/07/19 1516 Urine Phencyclidine Screen NEGATIVE ng/mL 09/07/19 1516 Urine Amphetamines Screen NEGATIVE ng/mL 09/07/19 1516 Urine Benzodiazepines Screen NEGATIVE ng/mL 09/07/19 1516 Urine Cocaine Screen NEGATIVE ng/mL 09/07/19 1516 Urine Marijuana (THC) Screen NEGATIVE ng/mL 09/07/19 1516 Ethyl Alcohol Level < 10 mg/dL 09/07/19 1515 Vital Signs Label Value Date Time Blood Pressure Assessment 93/55 (67) 09/08/19 1236 Source Automatic Cuff Pulse 101 09/08/19 1236 Location Left Radial Emergency room note: Chief Complaint: ANXIOUS, BEHAVIOR CHANGE and SUICIDAL THOUGHTS and DELUSIONAL and AUDITORY HALLUCINATIONS. This started last night. (39 yo female presents to ED with complaints of anxiety, suicidal thoughts, delusions, auditory hallucinations and bizarre behavior. The patient states she woke up and felt a little confused. She said she did not want to go to sleep after she took the Tylenol PM (she took 2). Her boyfriend states she has been hearing voices for a while. She and her boyfriend state she has plans of harming herself but has no specific plan. She said she thought people were coming after her so she got a little scared. She said sometimes the pain is overwhelming, it goes to the back and then to the top of her head. She then began rubbing the top of her head/picking at her head.). Mental health history: See above. Family mental health history is negative. Social history: Patient grew up in [place]. She did not graduate from high school but got her GED and has taken some college classes. She currently lives with her boyfriend out. Their relationship is roosevelt. She denies any history of physical or emotional abuse. She alludes to the likelihood that he has a significant drug abuse problem. However she is very unclear on their relationship. She has no children. She works 9 hours a week but did not understand her was that she worked. Legal history: Public record indicates no criminal activity. However she has had considerable financial difficulty and appears to have had a lawsuit filed against her within the past month by [employer]. Past medical history: She is status post hysterectomy. I refer you to her emergency room notes for further medical details. Hospital Course Hospital Course She quickly acclimated to the individual, group and milieu therapies provided. She was open to receiving medications to assist with her psychosis and depression. Abilify 10 mg p.o. every morning, Lexapro 10 mg p.o. every morning, and trazodone 100 mg p.o. were initiated and she had significant improvement. She was able to contract for safety outside of the hospital prior to discharge. During the hospitalization, patient had routine laboratory studies which were within normal limits except for few outliers. Additionally there was a general medical evaluation which was also within normal limits and revealed no new acute processes. Discharge Summary: At the time of discharge, she denies psychosis or lethality. Mood and anxiety were well managed. Patient endorsed a plan to avoid all drugs of abuse and follow-up with the aftercare recommendations of the treatment team. Patient was evaluated and deemed to be absent credible lethality, and was a voluntary patient no longer desiring inpatient hospitalization, so she was discharged. Mental Status Exam MSE Comments: This is an overweight white female with adequate eye contact and limited grooming. In hospital scrubs. Poor dentition. No abnormal movements except for mild psychomotor retardation. Cooperative with exam in no acute distress. Speech was slightly decreased rate and volume. Mood described as much better, affect euthymic. Thought process organized. Thought content: Patient denied suicidal or homicidal ideation, there were no delusions reported noted, she denied auditory or visual hallucinations. Attention and concentration appeared intact and memory appeared reliable but none were formally tested. She alert and oriented x3. Insight and judgment appeared improving and impulse control limited. Discharge Data Studies Completed and Pending: Laboratory Results WBC 12.8 10^3/uL (4.0 -10.0) H 08/07/22 18:10 RBC 4.53 10^6/uL (4.1 -5.3) 08/07/22 18:10 Hgb 14.0 g/dL (11.5-1 5.3) 08/07/22 18:10 Hct 42.4 % (37.0-47.0 ) 08/07/22 18:10 MCV 93.6 fl (81-99) 08/07/22 18:10 MCH 30.9 pg (28.0-34. 0) 08/07/22 18:10 MCHC 33.0 g/dL (30.0-3 6.0) 08/07/22 18:10 RDW 13.4 % (12.1-15.1 ) 08/07/22 18:10 Plt Count 260 10^3/cmm (130 -400) 08/07/22 18:10 MPV 9.7 fL (7.4-10.4) 08/07/22 18:10 Neut % (Auto) 65.7 % 08/07/22 18:10 Lymph % (Auto) 27.3 % 08/07/22 18:10 [place] % (Auto) 5.5 % 08/07/22 18:10 Eos % (Auto) 0.9 % 08/07/22 18:10 Baso % (Auto) 0.3 % 08/07/22 18:10 Neut # (Auto) 8.43 10^3/uL (1.8 -7.7) H 08/07/22 18:10 Lymph # (Auto) 3.5 10^3/uL (0.8- 4.8) 08/07/22 18:10 [place] # (Auto) 0.7 10^3/uL (0.2- 0.9) 08/07/22 18:10 Eos # (Auto) 0.1 10^3/uL (0.0- 0.8) 08/07/22 18:10 Baso # (Auto) 0.0 10^3/uL (0.0- 0.1) 08/07/22 18:10 Nucleated RBC % (a uto) 0 % 08/07/22 18:10 Nucleated RBCs # 0.0 /100WBC 08/07/22 18:10 Sodium 136 mmol/L (136-1 45) 08/07/22 18:10 Potassium 3.6 mmol/L (3.5-5 .1) 08/07/22 18:10 Chloride 102 mmol/L (98-10 7) 08/07/22 18:10 Carbon Dioxide 22 mmol/L (22-29) 08/07/22 18:10 Anion Gap 15.6 (5-19) 08/07/22 18:10 BUN 11 mg/dL (6-20) 08/07/22 18:10 Creatinine 0.6 mg/dL (0.5-0. 9) 08/07/22 18:10 GFR Calculation 110.7 mL/min (90- 130) 08/07/22 18:10 Glucose 85 mg/dL (65-115) 08/07/22 18:10 Calculated Osmolal ity 281 mOsm/kg (285- 295) L 08/07/22 18:10 Calcium 9.4 mg/dL (8.5-10 .5) 08/07/22 18:10 Total Bilirubin 0.5 mg/dL (0.15-1 .2) 08/07/22 18:10 AST 23 U/L (0-32) 08/07/22 18:10 ALT 17 U/L (0-33) 08/07/22 18:10 Alkaline Phosphata se 65 U/L (35-105) 08/07/22 18:10 Total Protein 7.4 g/dL (6.6-8.7 ) 08/07/22 18:10 Albumin 4.5 g/dL (3.5-5.2 ) 08/07/22 18:10 Globulin 2.9 g/dL (1.3-4.6 ) 08/07/22 18:10 HCG, Qual Negative (Negati ve) 08/07/22 20:29 Salicylates < 0.3 mg/dL (3-10 ) L 08/07/22 18:10 Urine Opiates Scre en Positive ng/mL (N egative) H 08/07/22 20:29 Acetaminophen < 5.0 ug/mL (10-3 0) L 08/07/22 18:10 Ur Barbiturates Sc reen Negative ng/mL (N egative) 08/07/22 20:29 Ur Phencyclidine S crn Negative ng/mL (N egative) 08/07/22 20:29 Ur Amphetamines Sc reen Positive ng/mL (N egative) H 08/07/22 20:29 U Benzodiazepines Scrn Positive ng/mL (N egative) H 08/07/22 20:29 Urine Cocaine Scre en Negative ng/mL (N egative) 08/07/22 20:29 U Marijuana (THC) Screen Negative ng/mL (N egative) 08/07/22 20:29 Ethyl Alcohol < 10 mg/dL (0-10) 08/07/22 18:00 Vitals: Last Vital Signs Temp 98.4 F 08/11/22 06:00 Pulse 84 08/11/22 06:00 Resp 18 08/11/22 06:00 BP 100/66 08/11/22 06:00 Pulse Ox 95 08/11/22 06:00 O2 Del Method 08/11/22 06:00 Discharge Plan Discharge Patient Disposition: Home Condition: Stable Prescriptions: New escitalopram oxalate 10 mg Tablet 10 mg PO DAILY 30 Days Qty: 30 1RF aripiprazole 10 mg Tablet 10 mg PO DAILY 30 Days Qty: 30 1RF Continued acetaminophen [Tylenol Extra Strength] 500 mg Tablet 500 - 1,000 mg PO PRN trazodone 50 mg tablet 100 mg PO BEDTIME Qty: 60 2RF Discontinued bupropion HCl [Wellbutrin XL] 150 mg tablet extended release 24 hr 150 mg PO QAM Qty: 30 2RF duloxetine [Cymbalta] 60 mg capsule,delayed release(DR/EC) 60 mg PO DAILY Qty: 30 2RF risperidone [Risperdal] 2 mg tablet 2 mg PO TID Qty: 90 2RF benztropine 1 mg tablet 2 mg PO BEDTIME Discharge Orders: Discharge Order (Routine); Ordered 08/11/22 Ordered By: Jarett Ayala Referrals: [facility] [Other] - 4-7 days Lalita Verdugo LPC [Therapist] - 1-3 days (You have not been seen in [facility] office since 02/07/22. That is over the 6 month luis, so [facility] will need you to come in as a walk-in for the initial assessment to restart services. Sunday through Sunday 7:30 am to 3:00 pm. ) Jalil Deluna MD [Physician] - 1-3 days (You have not been seen in [facility] office since 02/07/22. That is over the 6 month luis, so [facility] will need you to come in as a walk-in for the initial assessment to restart services. Sunday through Sunday 7:30 am to 3:00 pm. ) Florin Perez DO [Staff Physician] - 08/18/22 11:20 am (You will be seen at the [address] [address]. ) Discharge Diet: Regular Discharge Activity: Resume usual activity Patient Instructions: Escitalopram (By mouth), Aripiprazole (By mouth), Schizophrenia (DC), Methamphetamine Use Disorder (DC), Opioid Safety Discharge Attestations NPU Time Spent in Discharge Care*: less than 30 min Specific Discharge Activities: Specific discharge activities: educating patient, discussing with case management assistant/social workers/dc planners, documenting/other paperwork and evaluating patient/reviewing data Coding Level of Care Code Acute Chg FW DC note Diagnoses Acute psychosis F23 Substance-induced psychotic disorder F19.959 Auditory hallucinations R44.0
[2022-08-11] MEDS: acetaminophen 325 mg Tablet 650 MG PO (10:12)
[2022-08-11] MEDS: cetylpyridinium Lozenge 1 EACH MUCOUS MEM (10:12)
[2022-08-11 10:27] VITALS: BP 100/66; PULSE 84; RESP 18; TEMP 36.9; O2SAT 95
== END 2022-08-11 12:45 | disposition home or self-care (01) | DRG 897 ==
LOC: ER 17:34 → NP 22:52
PROVIDERS: Admitting Provider Psychiatry & Neurology Psychiatry; Emergency Provider Family Medicine; Visit Provider Psychiatry & Neurology Psychiatry
DX: F15.251 Other stimulant dependence with stimulant-induced psychotic disorder with hallucinations (principal); R45.851 Suicidal ideations; T43.8X6A Underdosing of other psychotropic drugs, initial encounter; F11.90 Opioid use, unspecified, uncomplicated; F17.210 Nicotine dependence, cigarettes, uncomplicated; F32.A Depression, unspecified; Z91.51 Personal history of suicidal behavior; Z81.8 Family history of other mental and behavioral disorders
CPT/HCPCS: 80053; 80306; 80307; 81025; 85025; 96372; 97150; 97165; 99285; J1200; J1630; J2060; Q0163

== ENCOUNTER 2022-09-26 01:14 | Emergency (ER) | payer MEDICAID, SELFPAY ==
[2022-09-26 01:15] VITALS: BP 136/76; PULSE 87; RESP 18; TEMP 36.8; O2SAT 99; BMI 36.3
--- NOTE | 2022-09-26 01:21 | W.ED.PSYCHS ---
HPI - Psych General: Chief Complaint: Psychiatric Symptoms Stated Complaint: psychiatric symptoms Time Seen by Provider: 09/26/22 01:18 Source: patient and police Mode of arrival: other (police) Limitations: no limitations History of Present Illness: 42-year-old female has a history of substance-induced psychotic disorder along with schizophrenia and amphetamine abuse. Patient is here with police after she is placed under 96-hour hold by family member. She supposedly has been hearing voices. Patient here denies being suicidal or homicidal states she does hear voices. She states that she had used methamphetamine tonight with her boyfriend she states that she had wanted to go to a field just be left alone. She states that her boyfriend was concern he had called the police she adamantly denies being suicidal or homicidal is able to answer my questions appropriately Associated symptoms: Reports auditory hallucinations Review of Systems Const: Denies: fever(s), chills, body aches or change in appetite Eyes: Denies: blurry vision or eye discomfort ENMT: Denies: throat pain or dental pain Card: Denies: chest pain Resp: Denies: dyspnea GI: Denies: abdominal pain, nausea, vomiting or diarrhea : Denies: dysuria Musc: Denies: neck pain or back pain Skin/Breast: Denies: rash Neuro: Denies: headache(s) Psych: Reports: auditory hallucinations Yves/Lymph: Denies: easy bruising All/Imm: Denies: urticaria PFSH ED PFSH: Medical History Psychiatric care Tubal Surgical History H/O: hysterectomy Social History Smoking and tobacco status: current every day smoker cigarettes Packs smoked per day: 1.5 Years cigarettes smoked: 18 Quit status (tobacco): has tried quititng Number of times tried to quit tobacco: 3 Second hand smoke exposure: Yes Smoking risk assessment/counseling performed?: No Physical Exam Const: COMMON NORMALS: patient oriented x3 HENMT: COMMON NORMALS: normocephalic and atraumatic HEAD & SCALP: normocephalic and atraumatic Eye: COMMON NORMALS: Equal, round and reactive pupils present and EOMs intact bilaterally PUPIL: Yes Equal, round and reactive pupils present Neck/C-Spine: COMMON NORMALS: full ROM and supple Chest: COMMONS NORMALS: normal inspection of the chest and normal palpation of entire chest wall Resp: COMMON NORMALS: normal respiratory effort, No retractions, No use of accessory muscles and clear to auscultation bilaterally AUSCULTATION: clear to auscultation bilaterally Cardio: COMMON NORMALS: regular rate, regular rhythm and No murmurs present (Cardio) RATE: regular rate RHYTHM: regular rhythm GI: COMMON NORMALS: Normal to inspection, nondistended, normoactive bowel sounds present, Soft to palpation, non-tender and no masses PALPATION: Yes Soft to palpation Extremity: COMMON NORMALS: normal to inspection and full ROM Neuro: COMMON NORMALS: patient oriented x3, moves all extremities and no focal motor deficits Psych: COMMON NORMALS: Normal thought process present and cooperative THOUGHT PROCESS: Normal thought process present Skin: COMMON NORMALS: no rashes or lesions noted and no wounds GENERAL SKIN EXAM: no rashes or lesions noted Course Vital Signs: Vital signs: Vital Signs Temperature 98.2 F 09/26/22 01:15 Pulse Rate 87 09/26/22 01:15 Respiratory Rate 18 09/26/22 01:15 Blood Pressure 136/76 09/26/22 01:15 Pulse Oximetry 99 09/26/22 01:15 Oxygen Delivery Me thod 09/26/22 01:15 MDM - Psych Medical Decision Making Patient presents here with hallucinations on methamphetamine abuse. Patient's well-appearing here she is not acutely psychotic here she does not have suicidal homicidal ideations patient was evaluated by psychiatrist Dr. Ayala who agrees she is stable for discharge and will rescind 96-hour hold. Discharge Plan Discharge Patient Disposition: Home Clinical Impression: Methamphetamine abuse Condition: Stable Prescriptions: No Action acetaminophen [Tylenol Extra Strength] 500 mg Tablet 500 - 1,000 mg PO PRN escitalopram oxalate 10 mg Tablet 10 mg PO DAILY 30 Days Qty: 30 1RF aripiprazole 10 mg Tablet 10 mg PO DAILY 30 Days Qty: 30 1RF trazodone 50 mg tablet 100 mg PO BEDTIME Qty: 60 2RF Discharge Orders: Discharge ED (Routine); Ordered 09/26/22 Ordered By: Rocío Timmons Discharge Diet: Advance as tolerated Discharge Activity: Resume usual activity Patient Instructions: Methamphetamine Use Disorder (ED) Coding Level of Care Code ED Dry Kiln Operator Helper for Louis Fwd Exam Comprehensive
[2022-09-26 02:57] VITALS: RESP 16; O2SAT 99
== END 2022-09-26 02:55 | disposition home or self-care (01) ==
PROVIDERS: Emergency Provider Emergency Medicine
DX: F15.10 Other stimulant abuse, uncomplicated (principal); R44.0 Auditory hallucinations; F17.210 Nicotine dependence, cigarettes, uncomplicated
CPT/HCPCS: 99283

== ENCOUNTER 2022-11-03 15:51 | Emergency (ER) | payer MEDICAID, SELFPAY ==
[2022-11-03] VITALS (11 sets, daily range): BP systolic 124–146; BP diastolic 62–87; PULSE 94–125; RESP 14–27; TEMP 36.1–38.8; O2SAT 90–100; BMI 30.2
[2022-11-03] MEDS: haloperidol inj 5 mg/mL INJ 1 mL IVP (15:56)
[2022-11-03] MEDS: LORazepam 2 mg/mL INJ 1 mL IVP (15:56)
--- NOTE | 2022-11-03 15:56 | PC.NURSE ---
PT ARRIVED TO ED IN SOFT RESTRAINTS. EMS STATED PT WAS ATTEMPTING TO STRIKE EMS AND STRUCK OFFICER. EMS REPORTS PT HAS BEEN OFF OF SCHIZOPHRENIA MEDICATION FOR TWO WEEKS AND USED METH TODAY. DR. SUNSHINE GAVE VERBAL ORDER TO PLACE PT IN 4 POINT RESTRAINT. SECURITY PRESENT DURING RESTRAINT. DR. SUNSHINE GAVE VERBAL ORDER TO ADMINISTER 2MG ATIVAN AND 5MG HALOPERIDOL IVP. REMAINING 5MG HALOPERIDOL WASTED WITH ECOGAVIN RN
--- NOTE | 2022-11-03 16:04 | CTR_ITS ---
PROCEDURE INFORMATION: Exam: CT Head Without Contrast Exam date and time: 11/03/2022 4:17 PM Age: 42 years old Clinical indication: Altered mental status/memory loss and other: Psych; Patient HX: Full restraints, psych PT; Additional info: AMS TECHNIQUE: Imaging protocol: Computed tomography of the head without contrast. Radiation optimization: All CT scans at this facility use at least one of these dose optimization techniques: automated exposure control; mA and/or kV adjustment per patient size (includes targeted exams where dose is matched to clinical indication); or iterative reconstruction. COMPARISON: CR XR cervical spine 3V* [id number] 12/08/2020 11:31 AM RADIATION DOSE METRICS: Total DLP (mGy-cm): 1243.83 FINDINGS: Brain: There is no evidence of infarct, godinez-white matter differentiation is preserved. There is no hemorrhage or extra-axial collection. There is no mass. Cerebral ventricles: There is no hydrocephalus. Paranasal sinuses: There is mucosal thickening with an air-fluid level in right maxillary sinus. Mastoid air cells: Visualized mastoid air cells are well aerated. Bones/joints: Unremarkable. No acute fracture. Soft tissues: Unremarkable. CT/CT head wo con* [id number] IMPRESSION: No intracranial lesion or injury
[2022-11-03 16:14] LABS: Basophils % 0.4 %; Eosinophils % 0.3 %; Hematocrit 40.1 % (37.0-47.0); Hemoglobin 13.3 g/dL (11.5-15.3); Lymphocytes % 21.1 %; Mean Corpuscular HGB Conc 33.2 g/dL (30.0-36.0); Mean Corpuscular Hemoglobin 30.4 pg (28.0-34.0); Mean Corpuscular Volume 91.6 fl (81-99); Mean Platelet Volume 8.9 fL (7.4-10.4); Monocytes # 0.8 10^3/uL (0.2-0.9); Neutrophils # 6.33 10^3/uL (1.8-7.7); Neutrophils % 68.8 %; Nucleated Red Blood Cells % 0 %; Platelet Count 331 10^3/cmm (130-400); Red Blood Count 4.38 10^6/uL (4.1-5.3); Red Cell Distribution Width 12.6 % (12.1-15.1); White Blood Count 9.2 10^3/uL (4.0-10.0)
--- NOTE | 2022-11-03 16:15 | W.ED.AMS ---
Documented by User: Jay Causey MD 11/03/22 22:58 HPI - Altered Mental Status General: Chief Complaint: Altered Mental Status Stated Complaint: psych Time Seen by Provider: 11/03/22 16:04 History of Present Illness: Patient is brought in by EMS after the family called due to mental status change. Apparently the patient is schizophrenic and has been off her medications for couple weeks. Today she was using methamphetamines and became combative and altered. When EMS and the police arrived she apparently attempted to bite punch and kick them. She was restrained and given ketamine and brought to the emergency department. Upon arrival here the patient is starting to become combative again. She is thrashing around yelling unintelligibly. We gave her Haldol and Ativan IV and place her in restraints here. Review of Systems General: Reports: ROS unobtainable due to mental status Const: Denies: fever(s) or body aches Eyes: Denies: change in vision or blurry vision ENMT: Denies: throat pain or odynophagia Card: Denies: chest pain or palpitations Resp: Denies: dyspnea or productive cough GI: Denies: abdominal pain, nausea or vomiting : Denies: flank pain or dysuria Musc: Denies: neck pain or back pain Skin/Breast: Denies: rash or pruritus Neuro: Reports: numbness in extremities and weakness in extremities; Denies: headache(s) Psych: Denies: anxiety or change in appetite Endo: Denies: polyuria or excessive sweating PFSH ED PFSH: Medical History Psychiatric care Tubal Surgical History H/O: hysterectomy Social History Smoking and tobacco status: current every day smoker cigarettes Packs smoked per day: 1.5 Years cigarettes smoked: 18 Quit status (tobacco): has tried quititng Number of times tried to quit tobacco: 3 Second hand smoke exposure: Yes Smoking risk assessment/counseling performed?: No Physical Exam Const: OTHER: pt is combative, does not answer questions or follow commands HENMT: COMMON NORMALS: normocephalic and atraumatic HEAD & SCALP: normocephalic and atraumatic Eye: COMMON NORMALS: Equal, round and reactive pupils present and EOMs intact bilaterally PUPIL: Yes Equal, round and reactive pupils present Neck/C-Spine: COMMON NORMALS: full ROM and supple Resp: COMMON NORMALS: normal respiratory effort, No retractions and No use of accessory muscles Cardio: COMMON NORMALS: regular rhythm RHYTHM: regular rhythm OTHER: Tachycardia GI: COMMON NORMALS: Soft to palpation PALPATION: Yes Soft to palpation Extremity: COMMON NORMALS: normal to inspection and full ROM Course Vital Signs: Vital signs: Vital Signs Temperature 97.0 F L 11/03/22 23:15 Pulse Rate 80 11/04/22 05:00 Respiratory Rate 14 11/04/22 05:00 Blood Pressure 109/79 11/04/22 05:00 Pulse Oximetry 96 11/04/22 02:00 Oxygen Delivery Me thod 11/04/22 05:00 MDM - Altered Mental Status Medical Decision Making Patient is brought in by EMS after the family called due to mental status change. Apparently the patient is schizophrenic and has been off her medications for couple weeks. Today she was using methamphetamines and became combative and altered. When EMS and the police arrived she apparently attempted to bite punch and kick them. She was restrained and given ketamine and brought to the emergency department. Upon arrival here the patient is starting to become combative again. She is thrashing around yelling unintelligibly. We gave her Haldol and Ativan IV and place her in restraints here. Will check labs, and reassess. On reassessment the patient is sleeping. She will not awaken fully with verbal or painful stimulation. Will allow her to continue to sober up and reassess. Will sign out to the oncoming physician. Lab Data 11/03/22 16:02 11/03/22 16:[address] 11/03/22 16:04 IMPRESSION: No intracranial lesion or injury Laboratory Results WBC 9.2 10^3/uL (4.0-10.0) 11/03/22 16:02 RBC 4.38 10^6/uL (4.1-5.3) 11/03/22 16:02 Hgb 13.3 g/dL (11.5-15.3) 11/03/22 16:02 Hct 40.1 % (37.0-47.0) 11/03/22 16:02 MCV 91.6 fl (81-99) 11/03/22 16:02 MCH 30.4 pg (28.0-34.0) 11/03/22 16:02 MCHC 33.2 g/dL (30.0-36.0) 11/03/22 16:02 RDW 12.6 % (12.1-15.1) 11/03/22 16:02 Plt Count 331 10^3/cmm (130-400) 11/03/22 16:02 MPV 8.9 fL (7.4-10.4) 11/03/22 16:02 Neut % (Auto) 68.8 % 11/03/22 16:02 Lymph % (Auto) 21.1 % 11/03/22 16:02 [place] % (Auto) 9.0 % 11/03/22 16:02 Eos % (Auto) 0.3 % 11/03/22 16:02 Baso % (Auto) 0.4 % 11/03/22 16:02 Neut # (Auto) 6.33 10^3/uL (1.8-7.7) 11/03/22 16:02 Lymph # (Auto) 2.0 10^3/uL (0.8-4.8) 11/03/22 16:02 [place] # (Auto) 0.8 10^3/uL (0.2-0.9) 11/03/22 16:02 Eos # (Auto) 0.0 10^3/uL (0.0-0.8) 11/03/22 16:02 Baso # (Auto) 0.0 10^3/uL (0.0-0.1) 11/03/22 16:02 Nucleated RBC % (auto) 0 % 11/03/22 16:02 Nucleated RBCs # 0.0 /100WBC 11/03/22 16:02 Sodium 141 mmol/L (136-145) 11/03/22 16:02 Potassium 3.7 mmol/L (3.5-5.1) 11/03/22 16:02 Chloride 105 mmol/L (98-107) 11/03/22 16:02 Carbon Dioxide 23 mmol/L (22-29) 11/03/22 16:02 Anion Gap 16.7 (5-19) 11/03/22 16:02 BUN 17 mg/dL (6-20) 11/03/22 16:02 Creatinine 1.0 mg/dL (0.5-0.9) H 11/03/22 16:02 GFR Calculation 61.4 mL/min (90-130) L 11/03/22 16:02 Glucose 81 mg/dL (65-115) 11/03/22 16:02 Calculated Osmolality 293 mOsm/kg (285-295) 11/03/22 16:02 Calcium 9.4 mg/dL (8.5-10.5) 11/03/22 16:02 Total Bilirubin 0.5 mg/dL (0.15-1.2) 11/03/22 16:02 AST 37 U/L (0-32) H 11/03/22 16:02 ALT 22 U/L (0-33) 11/03/22 16:02 Alkaline Phosphatase 68 U/L (35-105) 11/03/22 16:02 Total Protein 6.8 g/dL (6.6-8.7) 11/03/22 16:02 Albumin 4.7 g/dL (3.5-5.2) 11/03/22 16:02 Globulin 2.1 g/dL (1.3-4.6) 11/03/22 16:02 Salicylates < 0.3 mg/dL (3-10) L 11/03/22 16:02 Urine Opiates Screen Positive ng/mL (Negative) H 11/03/22 20:16 Acetaminophen < 5.0 ug/mL (10-30) L 11/03/22 16:02 Ur Barbiturates Screen Negative ng/mL (Negative) 11/03/22 20:16 Ur Phencyclidine Scrn Negative ng/mL (Negative) 11/03/22 20:16 Ur Amphetamines Screen Positive ng/mL (Negative) H 11/03/22 20:16 U Benzodiazepines Scrn Positive ng/mL (Negative) H 11/03/22 20:16 Urine Cocaine Screen Negative ng/mL (Negative) 11/03/22 20:16 U Marijuana (THC) Screen Negative ng/mL (Negative) 11/03/22 20:16 Ethyl Alcohol < 10 mg/dL (0-10) 11/03/22 16:02 Discharge Plan Discharge Patient Disposition: Home Clinical Impression: Polysubstance abuse Condition: Stable Prescriptions: No Action Unable to Assess Discharge Orders: Discharge ED (Routine); Ordered 11/04/22 Ordered By: Rocío Timmons Discharge Diet: Advance as tolerated Discharge Activity: Resume usual activity Patient Instructions: Methamphetamine Use Disorder (ED) Coding Level of Care Code ED Structural Engineering Technician for Arg Fwd Exam Detailed Documented by User: Rocío Timmons MD 11/04/22 05:15 HPI - Altered Mental Status General: Chief Complaint: Altered Mental Status Stated Complaint: psych Time Seen by Provider: 11/03/22 16:04 [facility] ED PFSH: Medical History Psychiatric care Tubal Surgical History H/O: hysterectomy Social History Smoking and tobacco status: current every day smoker cigarettes Packs smoked per day: 1.5 Years cigarettes smoked: 18 Quit status (tobacco): has tried quititng Number of times tried to quit tobacco: 3 Second hand smoke exposure: Yes Smoking risk assessment/counseling performed?: No Course Vital Signs: Vital signs: Vital Signs Temperature 97.0 F L 11/03/22 23:15 Pulse Rate 80 11/04/22 05:00 Respiratory Rate 14 11/04/22 05:00 Blood Pressure 109/79 11/04/22 05:00 Pulse Oximetry 96 11/04/22 02:00 Oxygen Delivery Me thod 11/04/22 05:00 MDM - Altered Mental Status Medical Decision Making Patient is brought in by EMS after the family called due to mental status change. Apparently the patient is schizophrenic and has been off her medications for couple weeks. Today she was using methamphetamines and became combative and altered. When EMS and the police arrived she apparently attempted to bite punch and kick them. She was restrained and given ketamine and brought to the emergency department. Upon arrival here the patient is starting to become combative again. She is thrashing around yelling unintelligibly. We gave her Haldol and Ativan IV and place her in restraints here. Will check labs, and reassess. On reassessment the patient is sleeping. She will not awaken fully with verbal or painful stimulation. Will allow her to continue to sober up and reassess. Will sign out to the oncoming physician. Patient is now awake and alert and ambulatory she is stable for discharge she is to follow-up with PCP and return if worsening symptoms likely due to her methamphetamine abuse Lab Data 11/03/22 16:02 11/03/22 16:[address] 11/03/22 16:04 IMPRESSION: No intracranial lesion or injury Laboratory Results WBC 9.2 10^3/uL (4.0-10.0) 11/03/22 16:02 RBC 4.38 10^6/uL (4.1-5.3) 11/03/22 16:02 Hgb 13.3 g/dL (11.5-15.3) 11/03/22 16:02 Hct 40.1 % (37.0-47.0) 11/03/22 16:02 MCV 91.6 fl (81-99) 11/03/22 16:02 MCH 30.4 pg (28.0-34.0) 11/03/22 16:02 MCHC 33.2 g/dL (30.0-36.0) 11/03/22 16:02 RDW 12.6 % (12.1-15.1) 11/03/22 16:02 Plt Count 331 10^3/cmm (130-400) 11/03/22 16:02 MPV 8.9 fL (7.4-10.4) 11/03/22 16:02 Neut % (Auto) 68.8 % 11/03/22 16:02 Lymph % (Auto) 21.1 % 11/03/22 16:02 [place] % (Auto) 9.0 % 11/03/22 16:02 Eos % (Auto) 0.3 % 11/03/22 16:02 Baso % (Auto) 0.4 % 11/03/22 16:02 Neut # (Auto) 6.33 10^3/uL (1.8-7.7) 11/03/22 16:02 Lymph # (Auto) 2.0 10^3/uL (0.8-4.8) 11/03/22 16:02 [place] # (Auto) 0.8 10^3/uL (0.2-0.9) 11/03/22 16:02 Eos # (Auto) 0.0 10^3/uL (0.0-0.8) 11/03/22 16:02 Baso # (Auto) 0.0 10^3/uL (0.0-0.1) 11/03/22 16:02 Nucleated RBC % (auto) 0 % 11/03/22 16:02 Nucleated RBCs # 0.0 /100WBC 11/03/22 16:02 Sodium 141 mmol/L (136-145) 11/03/22 16:02 Potassium 3.7 mmol/L (3.5-5.1) 11/03/22 16:02 Chloride 105 mmol/L (98-107) 11/03/22 16:02 Carbon Dioxide 23 mmol/L (22-29) 11/03/22 16:02 Anion Gap 16.7 (5-19) 11/03/22 16:02 BUN 17 mg/dL (6-20) 11/03/22 16:02 Creatinine 1.0 mg/dL (0.5-0.9) H 11/03/22 16:02 GFR Calculation 61.4 mL/min (90-130) L 11/03/22 16:02 Glucose 81 mg/dL (65-115) 11/03/22 16:02 Calculated Osmolality 293 mOsm/kg (285-295) 11/03/22 16:02 Calcium 9.4 mg/dL (8.5-10.5) 11/03/22 16:02 Total Bilirubin 0.5 mg/dL (0.15-1.2) 11/03/22 16:02 AST 37 U/L (0-32) H 11/03/22 16:02 ALT 22 U/L (0-33) 11/03/22 16:02 Alkaline Phosphatase 68 U/L (35-105) 11/03/22 16:02 Total Protein 6.8 g/dL (6.6-8.7) 11/03/22 16:02 Albumin 4.7 g/dL (3.5-5.2) 11/03/22 16:02 Globulin 2.1 g/dL (1.3-4.6) 11/03/22 16:02 Salicylates < 0.3 mg/dL (3-10) L 11/03/22 16:02 Urine Opiates Screen Positive ng/mL (Negative) H 11/03/22 20:16 Acetaminophen < 5.0 ug/mL (10-30) L 11/03/22 16:02 Ur Barbiturates Screen Negative ng/mL (Negative) 11/03/22 20:16 Ur Phencyclidine Scrn Negative ng/mL (Negative) 11/03/22 20:16 Ur Amphetamines Screen Positive ng/mL (Negative) H 11/03/22 20:16 U Benzodiazepines Scrn Positive ng/mL (Negative) H 11/03/22 20:16 Urine Cocaine Screen Negative ng/mL (Negative) 11/03/22 20:16 U Marijuana (THC) Screen Negative ng/mL (Negative) 11/03/22 20:16 Ethyl Alcohol < 10 mg/dL (0-10) 11/03/22 16:02 Discharge Plan Discharge Patient Disposition: Home Clinical Impression: Polysubstance abuse Condition: Stable Prescriptions: No Action Unable to Assess Discharge Orders: Discharge ED (Routine); Ordered 11/04/22 Ordered By: Rocío Timmons Discharge Diet: Advance as tolerated Discharge Activity: Resume usual activity Patient Instructions: Methamphetamine Use Disorder (ED) Coding Level of Care Code ED Structural Engineering Technician for Louis Fwd Exam Detailed
[2022-11-03 16:35] LABS: Alanine Aminotransferase 22 U/L (0-33); Albumin Level 4.7 g/dL (3.5-5.2); Alkaline Phosphatase 68 U/L (35-105); Anion Gap 16.7 (5-19); Aspartate Amino Transferase 37 U/L (0-32); Blood Urea Nitrogen 17 mg/dL (6-20); Calcium 9.4 mg/dL (8.5-10.5); Carbon Dioxide 23 mmol/L (22-29); Chloride 105 mmol/L (98-107); Creatinine Clr Calc Pharmacy 80.3238; Globulin 2.1 g/dL (1.3-4.6); Glomerular Filtration Rate 61.4 mL/min (90-130); Glucose 81 mg/dL (65-115); Osmolality Calculated 293 mOsm/kg (285-295); Potassium 3.7 mmol/L (3.5-5.1); Sodium 141 mmol/L (136-145); Total Bilirubin 0.5 mg/dL (0.15-1.2); Total Protein 6.8 g/dL (6.6-8.7)
[2022-11-03] MEDS: sodium chloride 0.9% 500 ML IV (16:39)
[2022-11-03 16:40] LABS: Acetaminophen < 5.0 ug/mL (10-30); Alcohol Level < 10 mg/dL (0-10); Salicylate < 0.3 mg/dL (3-10)
--- NOTE | 2022-11-03 16:40 | PC.NURSE ---
5MG HALOPERIDOL WASTED WITH ECOOPER RN
--- NOTE | 2022-11-03 17:16 | PC.NURSE ---
DR. SUNSHINE GAVE VERBAL ORDER TO REMOVE PT FROM 4 POINT RESTRAINT
[2022-11-03 20:51] LABS: Amphetamines Screen Urine Positive (Negative); Barbiturates Screen Urine Negative (Negative); Benzodiazepines Screen Urine Positive (Negative); Cocaine Screen Urine Negative (Negative); Opiate Screen Urine Positive (Negative); PCP Screen Urine Negative (Negative); THC Screen Urine Negative (Negative)
[2022-11-04 01:45] VITALS: PULSE 100; RESP 14; O2SAT 94
[2022-11-04 02:00] VITALS: BP 107/68; PULSE 106; RESP 14; O2SAT 96
[2022-11-04 05:00] VITALS: BP 109/79; PULSE 80; RESP 14
[2022-11-04 05:49] VITALS: PULSE 90; RESP 14; O2SAT 96
== END 2022-11-04 05:45 | disposition home or self-care (01) ==
PROVIDERS: Emergency Medicine; Emergency Provider Emergency Medicine
DX: F19.10 Other psychoactive substance abuse, uncomplicated (principal); F17.210 Nicotine dependence, cigarettes, uncomplicated
CPT/HCPCS: 70450; 80053; 80306; 80307; 85025; 96361; 96374; 96375; 99285; J1630; J2060; J7040

== ENCOUNTER 2023-04-11 20:31 | Emergency (ER) | payer MEDICAID, SELFPAY ==
[2023-04-11 20:33] VITALS: BP 119/72; PULSE 125; RESP 16; TEMP 36.8; O2SAT 98; BMI 24.4
[2023-04-11 21:02] LABS: Basophils # 0.1 10^3/uL (0.0-0.1); Basophils % 0.4 %; Eosinophils # 0.1 10^3/uL (0.0-0.8); Eosinophils % 0.8 %; Hematocrit 42.8 % (37.0-47.0); Hemoglobin 13.8 g/dL (11.5-15.3); Lymphocytes # 3.2 10^3/uL (0.8-4.8); Lymphocytes % 26.8 %; Mean Corpuscular HGB Conc 32.2 g/dL (30.0-36.0); Mean Corpuscular Hemoglobin 30.3 pg (28.0-34.0); Mean Corpuscular Volume 93.9 fl (81-99); Mean Platelet Volume 9.7 fL (7.4-10.4); Monocytes # 0.6 10^3/uL (0.2-0.9); Monocytes % 4.7 %; Neutrophils # 7.88 10^3/uL (1.8-7.7); Neutrophils % 67.1 %; Nucleated Red Blood Cells % 0 %; Platelet Count 232 10^3/cmm (130-400); Red Blood Count 4.56 10^6/uL (4.1-5.3); Red Cell Distribution Width 13.2 % (12.1-15.1); White Blood Count 11.7 10^3/uL (4.0-10.0)
--- NOTE | 2023-04-11 21:12 | ED.C_ITS ---
Documented by User: Ravin Alford DO 04/11/23 22:20 HPI - Psych General: Chief Complaint: Psychiatric Symptoms Stated Complaint: MHE Time Seen by Provider: 04/11/23 20:35 History of Present Illness: Patient arrives to the ER by EMS with complaints of patient hysterically bawling in the position and will not answer questions due to hysterics. Patient did talk to nurse and said that she called EMS to go to the stress unit because she has been off of all of her medicines for some time and wants reevaluated and put back on her medicines. Patient is voluntary and denies the use of any drugs or alcohol. Review of Systems General: Reports: 10 or more systems reviewed and unremarkable except in HPI and below PFSH ED PFSH: Medical History Psychiatric care Tubal Surgical History H/O: hysterectomy Social History Smoking and tobacco status: current every day smoker cigarettes Packs smoked per day: 1.5 Years cigarettes smoked: 18 Quit status (tobacco): has tried quititng Number of times tried to quit tobacco: 3 Second hand smoke exposure: Yes Smoking risk assessment/counseling performed?: No Physical Exam Const: COMMON NORMALS: no acute distress, average body habitus, patient oriented x3, no limitations, healthy appearing, alert and well nourished EXAM LIMITATIONS: behavioral limitations HENMT: COMMON NORMALS: normocephalic, atraumatic, external ears normal, Normal external nose present and moist oral mucous membranes HEAD & SCALP: normocephalic and atraumatic NOSE: Normal external nose present EXTERNAL EAR: Yes external ears normal Eye: COMMON NORMALS: Equal, round and reactive pupils present, EOMs intact bilaterally, conjunctivae normal and no scleral icterus CONJUNCTIVA: Yes conjunctivae normal PUPIL: Yes Equal, round and reactive pupils present Neck/C-Spine: COMMON NORMALS: no JVD Chest: COMMONS NORMALS: normal inspection of the chest and normal palpation of entire chest wall Resp: COMMON NORMALS: normal respiratory effort, No retractions, No use of accessory muscles and clear to auscultation bilaterally AUSCULTATION: clear to auscultation bilaterally Cardio: COMMON NORMALS: no JVD, S1 normal heart sound present, S2 normal heart sound present, No gallops present (Cardio), No clicks present (Cardio), No murmurs present (Cardio) and No rub (Cardio) RATE: tachycardic HEART SOUNDS: S1 normal heart sound present and S2 normal heart sound present GI: COMMON NORMALS: Normal to inspection, nondistended, normoactive bowel sounds present, Soft to palpation, non-tender, No hepatosplenomegaly present and no masses PALPATION: Yes Soft to palpation and Yes No hepatosplenomegaly present : COMMON NORMALS: Yes no CVA tenderness BLADDER/KIDNEY EXAM: Yes no CVA tenderness Back/Pelvis: COMMON NORMALS: no CVA tenderness Neuro: COMMON NORMALS: patient oriented x3 SENSORIUM/ORIENTATION: Yes alert Psych: APPEARANCE: Yes unkempt and Yes disheveled ATTITUDE: Yes bizarre and Yes uncooperative ACTIVITY/MOTOR BEHAVIOR: Yes restless MOOD & AFFECT: Yes depressed mood, Yes anxious and Yes tearful THOUGHT PROCESS: disorganized Course Vital Signs: Vital signs: Vital Signs Temperature 98.3 F 04/11/23 20:33 Pulse Rate 97 04/12/23 12:22 Respiratory Rate 16 04/12/23 12:22 Blood Pressure 105/70 04/12/23 12:22 Pulse Oximetry 96 04/12/23 12:22 Oxygen Delivery Me thod Room Air 04/11/23 20:33 MDM - Psych Differential Diagnosis Likely depression; Unlikely acute psychosis, chronic schizophrenia, suicidal ideation, bipolar disorder, drug-induced psychotic disorder or acute anxiety Medical Records I reviewed the patient's medical records. Lab Data I reviewed the patient's lab results. 04/11/23 20:55 04/11/23 20:55 Laboratory Results WBC 11.7 10^3/uL (4.0-10.0) H 04/11/23 20:55 RBC 4.56 10^6/uL (4.1-5.3) 04/11/23 20:55 Hgb 13.8 g/dL (11.5-15.3) 04/11/23 20:55 Hct 42.8 % (37.0-47.0) 04/11/23 20:55 MCV 93.9 fl (81-99) 04/11/23 20:55 MCH 30.3 pg (28.0-34.0) 04/11/23 20:55 MCHC 32.2 g/dL (30.0-36.0) 04/11/23 20:55 RDW 13.2 % (12.1-15.1) 04/11/23 20:55 Plt Count 232 10^3/cmm (130-400) 04/11/23 20:55 MPV 9.7 fL (7.4-10.4) 04/11/23 20:55 Neut % (Auto) 67.1 % 04/11/23 20:55 Lymph % (Auto) 26.8 % 04/11/23 20:55 [place] % (Auto) 4.7 % 04/11/23 20:55 Eos % (Auto) 0.8 % 04/11/23 20:55 Baso % (Auto) 0.4 % 04/11/23 20:55 Neut # (Auto) 7.88 10^3/uL (1.8-7.7) H 04/11/23 20:55 Lymph # (Auto) 3.2 10^3/uL (0.8-4.8) 04/11/23 20:55 [place] # (Auto) 0.6 10^3/uL (0.2-0.9) 04/11/23 20:55 Eos # (Auto) 0.1 10^3/uL (0.0-0.8) 04/11/23 20:55 Baso # (Auto) 0.1 10^3/uL (0.0-0.1) 04/11/23 20:55 Nucleated RBC % (auto) 0 % 04/11/23 20:55 Nucleated RBCs # 0.0 /100WBC 04/11/23 20:55 Sodium 141 mmol/L (136-145) 04/11/23 20:55 Potassium 3.5 mmol/L (3.5-5.1) 04/11/23 20:55 Chloride 107 mmol/L (98-107) 04/11/23 20:55 Carbon Dioxide 22 mmol/L (22-29) 04/11/23 20:55 Anion Gap 15.5 (5-19) 04/11/23 20:55 BUN 12 mg/dL (6-20) 04/11/23 20:55 Creatinine 0.8 mg/dL (0.5-0.9) 04/11/23 20:55 GFR Calculation 79.4 mL/min (90-130) L 04/11/23 20:55 Glucose 100 mg/dL (65-115) 04/11/23 20:55 Calculated Osmolality 292 mOsm/kg (285-295) 04/11/23 20:55 Calcium 9.1 mg/dL (8.5-10.5) 04/11/23 20:55 Total Bilirubin 0.3 mg/dL (0.15-1.2) 04/11/23 20:55 AST 17 U/L (0-32) 04/11/23 20:55 ALT 11 U/L (0-33) 04/11/23 20:55 Alkaline Phosphatase 60 U/L (35-105) 04/11/23 20:55 Total Protein 6.8 g/dL (6.6-8.7) 04/11/23 20:55 Albumin 4.4 g/dL (3.5-5.2) 04/11/23 20:55 Globulin 2.4 g/dL (1.3-4.6) 04/11/23 20:55 Urine Color Yellow (Yellow) 04/12/23 10:06 Urine Appearance Cloudy (CLEAR) A 04/12/23 10:06 Urine pH 6 (5-7) 04/12/23 10:06 Ur Specific [place] 1.030 (1.005-1.030) 04/12/23 10:06 Urine Protein Neg (Negative) 04/12/23 10:06 Urine Glucose (UA) Norm (Normal) 04/12/23 10:06 Urine Ketones Negative (Negative) 04/12/23 10:06 Urine Blood Neg (Negative) 04/12/23 10:06 Urine Nitrate Negative (Negative) 04/12/23 10:06 Urine Bilirubin 1+ (Negative) H 04/12/23 10:06 Urine Urobilinogen 4 mg/dL (Negative) H 04/12/23 10:06 Ur Leukocyte Esterase Negative (Negative) 04/12/23 10:06 Urine RBC 0-4 /hpf (0-2) H 04/12/23 10:06 Urine WBC 15-25 /hpf (0-5) H 04/12/23 10:06 Ur Squamous Epith Cells 10-15 /hpf (0-5) H 04/12/23 10:06 Calcium Oxalate Crystal 0-4 /hpf H 04/12/23 10:06 Amorphous Sediment Not Reportable 04/12/23 10:06 Urine Bacteria 1+ /hpf (NONE) H 04/12/23 10:06 Urine Mucus 3+ /hpf 04/12/23 10:06 Salicylates < 0.3 mg/dL (3-10) L 04/11/23 20:55 Urine Opiates Screen Positive ng/mL (Negative) H 04/12/23 10:06 Acetaminophen < 5.0 ug/mL (10-30) L 04/11/23 20:55 Ur Barbiturates Screen Negative ng/mL (Negative) 04/12/23 10:06 Ur Phencyclidine Scrn Negative ng/mL (Negative) 04/12/23 10:06 Ur Amphetamines Screen Positive ng/mL (Negative) H 04/12/23 10:06 U Benzodiazepines Scrn Positive ng/mL (Negative) H 04/12/23 10:06 Urine Cocaine Screen Negative ng/mL (Negative) 04/12/23 10:06 U Marijuana (THC) Screen Negative ng/mL (Negative) 04/12/23 10:06 Ethyl Alcohol < 10 mg/dL (0-10) 04/11/23 20:55 SARS-CoV-2 Ag (Rapid) negative (Negative) 04/12/23 10:13 Discharge Plan Discharge Patient Disposition: Home Clinical Impression: Substance-induced psychotic disorder Condition: Stable Prescriptions: New aripiprazole [Abilify] 10 mg tablet 10 mg PO DAILY 30 Days Qty: 30 0RF Rx Instructions: Half tablet daily for 6 days then increase to full tablet daily No Action No Known Home Medications Discharge Orders: Discharge Order (Routine); Ordered 04/12/23 Ordered By: Raulito Pradhan Discharge ED (Routine); Ordered 04/12/23 Ordered By: Raulito Pradhan Discharge Diet: Usual diet Discharge Activity: Increase activity as tolerated Patient Instructions: Opioid Safety, Pain Management Activity Restrictions/Additional Instructions: Abstain from methamphetamine. Take 1/2 tablet of the Abilify daily for 6 days then increase to a full tablet daily. Case management will help you make arrangements to follow-up at [facility], [place]. Coding Level of Care Code ED Commissioned Police Officer for Chg Fwd Documented by User: Raulito Pradhan DO 04/12/23 12:59 HPI - Psych General: Chief Complaint: Psychiatric Symptoms Stated Complaint: MHE Time Seen by Provider: 04/11/23 20:35 PFSH ED PFSH: Medical History Psychiatric care Tubal Surgical History H/O: hysterectomy Social History Smoking and tobacco status: current every day smoker cigarettes Packs smoked per day: 1.5 Years cigarettes smoked: 18 Quit status (tobacco): has tried quititng Number of times tried to quit tobacco: 3 Second hand smoke exposure: Yes Smoking risk assessment/counseling performed?: No Course Vital Signs: Vital signs: Vital Signs Temperature 98.3 F 04/11/23 20:33 Pulse Rate 97 04/12/23 12:22 Respiratory Rate 16 04/12/23 12:22 Blood Pressure 105/70 04/12/23 12:22 Pulse Oximetry 96 04/12/23 12:22 Oxygen Delivery Me thod Room Air 04/11/23 20:33 MDM - Psych Medical Decision Making Patient was admitted admitted to his neuropsychiatric candidate for drug-induced psychosis. She is also been off of her Abilify. There is a delay in getting her to the [facility] floor because of availability of beds. She is now awake and alert no longer the influence of methamphetamines and just wishes to leave. She acknowledges having needed methamphetamines. She admits she has not been taking her medications for some time and I contacted Dr. Desai he recommends starting her back on Abilify 5 mg daily for a few days and increase to 10 mg to decrease episode psychosis if she does use meth methamphetamines again. Patient did admit that if she leaves here she will go back with her mother her children are staying there and she still does have custody of them. After discussing with Dr. Desai and reinterviewed the patient she denies any homicidal or suicidal ideation she is not a 96-hour hold we will discharge her home. Nursing staff will make a hotline report for the use of methamphetamines while patient still has custody of her children. Lab Data 04/11/23 20:55 04/11/23 20:55 Laboratory Results WBC 11.7 10^3/uL (4.0-10.0) H 04/11/23 20:55 RBC 4.56 10^6/uL (4.1-5.3) 04/11/23 20:55 Hgb 13.8 g/dL (11.5-15.3) 04/11/23 20:55 Hct 42.8 % (37.0-47.0) 04/11/23 20:55 MCV 93.9 fl (81-99) 04/11/23 20:55 MCH 30.3 pg (28.0-34.0) 04/11/23 20:55 MCHC 32.2 g/dL (30.0-36.0) 04/11/23 20:55 RDW 13.2 % (12.1-15.1) 04/11/23 20:55 Plt Count 232 10^3/cmm (130-400) 04/11/23 20:55 MPV 9.7 fL (7.4-10.4) 04/11/23 20:55 Neut % (Auto) 67.1 % 04/11/23 20:55 Lymph % (Auto) 26.8 % 04/11/23 20:55 [place] % (Auto) 4.7 % 04/11/23 20:55 Eos % (Auto) 0.8 % 04/11/23 20:55 Baso % (Auto) 0.4 % 04/11/23 20:55 Neut # (Auto) 7.88 10^3/uL (1.8-7.7) H 04/11/23 20:55 Lymph # (Auto) 3.2 10^3/uL (0.8-4.8) 04/11/23 20:55 [place] # (Auto) 0.6 10^3/uL (0.2-0.9) 04/11/23 20:55 Eos # (Auto) 0.1 10^3/uL (0.0-0.8) 04/11/23 20:55 Baso # (Auto) 0.1 10^3/uL (0.0-0.1) 04/11/23 20:55 Nucleated RBC % (auto) 0 % 04/11/23 20:55 Nucleated RBCs # 0.0 /100WBC 04/11/23 20:55 Sodium 141 mmol/L (136-145) 04/11/23 20:55 Potassium 3.5 mmol/L (3.5-5.1) 04/11/23 20:55 Chloride 107 mmol/L (98-107) 04/11/23 20:55 Carbon Dioxide 22 mmol/L (22-29) 04/11/23 20:55 Anion Gap 15.5 (5-19) 04/11/23 20:55 BUN 12 mg/dL (6-20) 04/11/23 20:55 Creatinine 0.8 mg/dL (0.5-0.9) 04/11/23 20:55 GFR Calculation 79.4 mL/min (90-130) L 04/11/23 20:55 Glucose 100 mg/dL (65-115) 04/11/23 20:55 Calculated Osmolality 292 mOsm/kg (285-295) 04/11/23 20:55 Calcium 9.1 mg/dL (8.5-10.5) 04/11/23 20:55 Total Bilirubin 0.3 mg/dL (0.15-1.2) 04/11/23 20:55 AST 17 U/L (0-32) 04/11/23 20:55 ALT 11 U/L (0-33) 04/11/23 20:55 Alkaline Phosphatase 60 U/L (35-105) 04/11/23 20:55 Total Protein 6.8 g/dL (6.6-8.7) 04/11/23 20:55 Albumin 4.4 g/dL (3.5-5.2) 04/11/23 20:55 Globulin 2.4 g/dL (1.3-4.6) 04/11/23 20:55 Urine Color Yellow (Yellow) 04/12/23 10:06 Urine Appearance Cloudy (CLEAR) A 04/12/23 10:06 Urine pH 6 (5-7) 04/12/23 10:06 Ur Specific [place] 1.030 (1.005-1.030) 04/12/23 10:06 Urine Protein Neg (Negative) 04/12/23 10:06 Urine Glucose (UA) Norm (Normal) 04/12/23 10:06 Urine Ketones Negative (Negative) 04/12/23 10:06 Urine Blood Neg (Negative) 04/12/23 10:06 Urine Nitrate Negative (Negative) 04/12/23 10:06 Urine Bilirubin 1+ (Negative) H 04/12/23 10:06 Urine Urobilinogen 4 mg/dL (Negative) H 04/12/23 10:06 Ur Leukocyte Esterase Negative (Negative) 04/12/23 10:06 Urine RBC 0-4 /hpf (0-2) H 04/12/23 10:06 Urine WBC 15-25 /hpf (0-5) H 04/12/23 10:06 Ur Squamous Epith Cells 10-15 /hpf (0-5) H 04/12/23 10:06 Calcium Oxalate Crystal 0-4 /hpf H 04/12/23 10:06 Amorphous Sediment Not Reportable 04/12/23 10:06 Urine Bacteria 1+ /hpf (NONE) H 04/12/23 10:06 Urine Mucus 3+ /hpf 04/12/23 10:06 Salicylates < 0.3 mg/dL (3-10) L 04/11/23 20:55 Urine Opiates Screen Positive ng/mL (Negative) H 04/12/23 10:06 Acetaminophen < 5.0 ug/mL (10-30) L 04/11/23 20:55 Ur Barbiturates Screen Negative ng/mL (Negative) 04/12/23 10:06 Ur Phencyclidine Scrn Negative ng/mL (Negative) 04/12/23 10:06 Ur Amphetamines Screen Positive ng/mL (Negative) H 04/12/23 10:06 U Benzodiazepines Scrn Positive ng/mL (Negative) H 04/12/23 10:06 Urine Cocaine Screen Negative ng/mL (Negative) 04/12/23 10:06 U Marijuana (THC) Screen Negative ng/mL (Negative) 04/12/23 10:06 Ethyl Alcohol < 10 mg/dL (0-10) 04/11/23 20:55 SARS-CoV-2 Ag (Rapid) negative (Negative) 04/12/23 10:13 Discharge Plan Discharge Patient Disposition: Home Clinical Impression: Substance-induced psychotic disorder Condition: Stable Prescriptions: New aripiprazole [Abilify] 10 mg tablet 10 mg PO DAILY 30 Days Qty: 30 0RF Rx Instructions: Half tablet daily for 6 days then increase to full tablet daily No Action No Known Home Medications Discharge Orders: Discharge Order (Routine); Ordered 04/12/23 Ordered By: Raulito Pradhan Discharge ED (Routine); Ordered 04/12/23 Ordered By: Raulito Pradhan Discharge Diet: Usual diet Discharge Activity: Increase activity as tolerated Patient Instructions: Opioid Safety, Pain Management Activity Restrictions/Additional Instructions: Abstain from methamphetamine. Take 1/2 tablet of the Abilify daily for 6 days then increase to a full tablet daily. Case management will help you make arrangements to follow-up at [facility], [place]. Coding Level of Care Code ED Commissioned Police Officer for Louis Younger
[2023-04-11 21:19] LABS: Alanine Aminotransferase 11 U/L (0-33); Albumin Level 4.4 g/dL (3.5-5.2); Alkaline Phosphatase 60 U/L (35-105); Blood Urea Nitrogen 12 mg/dL (6-20); Calcium 9.1 mg/dL (8.5-10.5); Carbon Dioxide 22 mmol/L (22-29); Chloride 107 mmol/L (98-107); Globulin 2.4 g/dL (1.3-4.6); Glomerular Filtration Rate 79.4 mL/min (90-130); Glucose 100 mg/dL (65-115); Osmolality Calculated 292 mOsm/kg (285-295); Sodium 141 mmol/L (136-145); Total Bilirubin 0.3 mg/dL (0.15-1.2); Total Protein 6.8 g/dL (6.6-8.7)
[2023-04-11 21:30] LABS: Acetaminophen < 5.0 ug/mL (10-30); Alcohol Level < 10 mg/dL (0-10); Anion Gap 15.5 (5-19); Potassium 3.5 mmol/L (3.5-5.1); Salicylate < 0.3 mg/dL (3-10)
[2023-04-11] MEDS: LORazepam 2 mg/mL INJ 1 mL 1 MG IM (21:37)
[2023-04-11 21:46] LABS: Aspartate Amino Transferase 17 U/L (0-32)
[2023-04-12 04:00] VITALS: BP 105/70; PULSE 97; RESP 16; O2SAT 96
--- NOTE | 2023-04-12 08:16 | PC.NURSE ---
Patient sleeping in her room. Sitter outside of room.
[2023-04-12 10:25] LABS: Amphetamines Screen Urine Positive (Negative); Barbiturates Screen Urine Negative (Negative); Benzodiazepines Screen Urine Positive (Negative); Cocaine Screen Urine Negative (Negative); Opiate Screen Urine Positive (Negative); PCP Screen Urine Negative (Negative); THC Screen Urine Negative (Negative)
[2023-04-12 10:44] LABS: SARS Covid-2 Antigen negative (Negative)
[2023-04-12 10:46] LABS: Urine Color Yellow (Yellow)
[2023-04-12 10:47] LABS: Add Urine Microscopic? YES; Bacteria Urine 1+ /hpf; Bilirubin Urine 1+ (Negative); Blood Urine Neg (Negative); Glucose Urine UA Norm (Normal); Ketones Urine Negative (Negative); Leukocyte Esterase Urine Negative (Negative); Nitrate Urine Negative (Negative); Protein Urine Neg (Negative); RBC Urine 0-4 /hpf (0-2); Urine Appearance Cloudy (CLEAR); Urobilinogen Urine 4 mg/dL (Negative); WBC Urine 15-25 /hpf (0-5); pH Urine 6 (5-7)
[2023-04-12 10:48] LABS: Calcium Oxalate Crystals Urine 0-4 /hpf; Mucus Urine 3+ /hpf
[2023-04-12 10:49] LABS: Add Urine Culture? No
[2023-04-12 11:44] VITALS: BP 105/70; PULSE 97; RESP 16; O2SAT 96
[2023-04-12 12:22] VITALS: BP 105/70; PULSE 97; RESP 16; O2SAT 96
== END 2023-04-12 12:00 | disposition home or self-care (01) ==
LOC: ER 22:20 → ER IP 04-12 03:36
PROVIDERS: Emergency Medicine; Emergency Provider Family Medicine
DX: F19.959 Other psychoactive substance use, unspecified with psychoactive substance-induced psychotic disorder, unspecified (principal); F17.210 Nicotine dependence, cigarettes, uncomplicated; Z20.822 Contact with and (suspected) exposure to COVID-19
CPT/HCPCS: 36415; 80053; 80306; 80307; 81001; 85025; 87426; 96372; 99284; J2060

== ENCOUNTER 2023-05-25 23:34 | Inpatient (IN) | payer MEDICAID, SELFPAY ==
[2023-05-25 23:44] VITALS: BP 115/77; PULSE 110; RESP 18; TEMP 36.5; O2SAT 97; BMI 27.3
[2023-05-26 00:08] LABS: Basophils # 0.1 10^3/uL (0.0-0.1); Basophils % 0.6 %; Eosinophils # 0.1 10^3/uL (0.0-0.8); Eosinophils % 1.3 %; Hematocrit 39.4 % (37.0-47.0); Hemoglobin 12.8 g/dL (11.5-15.3); Lymphocytes # 3.9 10^3/uL (0.8-4.8); Mean Corpuscular HGB Conc 32.5 g/dL (30.0-36.0); Mean Corpuscular Hemoglobin 30.3 pg (28.0-34.0); Mean Corpuscular Volume 93.1 fl (81-99); Mean Platelet Volume 8.9 fL (7.4-10.4); Monocytes # 0.4 10^3/uL (0.2-0.9); Monocytes % 4.8 %; Neutrophils # 3.79 10^3/uL (1.8-7.7); Neutrophils % 45.9 %; Nucleated Red Blood Cells % 0 %; Platelet Count 230 10^3/cmm (130-400); Red Blood Count 4.23 10^6/uL (4.1-5.3); Red Cell Distribution Width 13.6 % (12.1-15.1); White Blood Count 8.3 10^3/uL (4.0-10.0)
--- NOTE | 2023-05-26 00:26 | ED.C_ITS ---
Documented by User: SAEED Brown 05/26/23 00:58 HPI - Psych General: Chief Complaint: Psychiatric Symptoms Stated Complaint: Si Time Seen by Provider: 05/25/23 23:49 History of Present Illness: 42-year-old female comes in [facility] with complaints of suicidal ideation. Patient reports increasing depression and suicidal thoughts. Patient has no specific plan. Patient has a history of substance use disorder. Patient reports symptoms have been increasing over the last 3 days. Patient reports nicotine use and occasional alcohol and methamphetamine. Patient reports its been over a month since her last methamphetamine use. MD complaint: suicidal ideation Onset (ago): day(s) Duration: getting worse History of same: Yes Relieving factors: none Exacerbating factors: none Associated psychiatric symptoms: depression Associated symptoms: Reports no associated symptoms, depression and suicidal ideation Review of Systems General: Reports: 10 or more systems reviewed and unremarkable except in HPI and below Const: Denies: fever(s) Eyes: Denies: change in vision ENMT: Denies: throat pain Card: Denies: chest pain Resp: Denies: dyspnea GI: Denies: nausea or vomiting : Denies: difficulty voiding Musc: Denies: back pain Skin/Breast: Denies: rash Neuro: Denies: headache(s) Psych: Reports: depression and suicidal ideation PFS ED PFSH: Medical History Psychiatric care Tubal Surgical History H/O: hysterectomy Social History Smoking and tobacco status: current every day smoker cigarettes Packs smoked per day: 1.5 Years cigarettes smoked: 18 Quit status (tobacco): has tried quititng Number of times tried to quit tobacco: 3 Second hand smoke exposure: Yes Smoking risk assessment/counseling performed?: No Physical Exam Const: COMMON NORMALS: alert HENMT: COMMON NORMALS: normocephalic and atraumatic HEAD & SCALP: normocephalic and atraumatic Neck/C-Spine: COMMON NORMALS: full ROM Resp: COMMON NORMALS: normal respiratory effort and clear to auscultation bilaterally AUSCULTATION: clear to auscultation bilaterally Cardio: COMMON NORMALS: regular rate and regular rhythm RATE: regular rate RHYTHM: regular rhythm GI: COMMON NORMALS: non-tender Back/Pelvis: COMMON NORMALS: thoracic and lumbar spine normal to inspection Extremity: COMMON NORMALS: normal to inspection and full ROM Neuro: SENSORIUM/ORIENTATION: Yes alert Skin: COMMON NORMALS: turgor normal GENERAL SKIN EXAM: turgor normal Course ED course: 1249, discussed patient with Dr. Ayala who accepted patient for admission to neuropsychiatric unit for SI. Vital Signs: Vital signs: Vital Signs Temperature 97.7 F 05/25/23 23:44 Pulse Rate 110 H 05/25/23 23:44 Respiratory Rate 18 05/25/23 23:44 Blood Pressure 115/77 05/25/23 23:44 Pulse Oximetry 97 05/25/23 23:44 Oxygen Delivery Me thod Room Air 05/25/23 23:44 MDM - Psych Medical Decision Making 42-year-old female comes in today for complaints of increased suicidal thoughts and depression. Patient reports the last 2 to 3 days she has had worsening symptoms. Patient does not have a specific plan for suicide. Respirations are even lungs are clear to auscultation. Vital signs are normal. Patient denies any pain or fever. Differential diagnosis includes major depressive disorder recurrent, substance use disorder, suicidal ideation. Reviewed patient with Dr. Ayala who accepted patient for admission to neuropsychiatric unit. Patient was voluntary for the admission. Reviewed patient with my attending, Dr. Pradhan whom no orders for admission. Lab Data 05/26/23 00:02 05/26/23 00:02 Laboratory Results WBC 8.3 10^3/uL (4.0-10.0) 05/26/23 00:02 RBC 4.23 10^6/uL (4.1-5.3) 05/26/23 00:02 Hgb 12.8 g/dL (11.5-15.3) 05/26/23 00:02 Hct 39.4 % (37.0-47.0) 05/26/23 00:02 MCV 93.1 fl (81-99) 05/26/23 00:02 MCH 30.3 pg (28.0-34.0) 05/26/23 00:02 MCHC 32.5 g/dL (30.0-36.0) 05/26/23 00:02 RDW 13.6 % (12.1-15.1) 05/26/23 00:02 Plt Count 230 10^3/cmm (130-400) 05/26/23 00:02 MPV 8.9 fL (7.4-10.4) 05/26/23 00:02 Neut % (Auto) 45.9 % 05/26/23 00:02 Lymph % (Auto) 47.0 % 05/26/23 00:02 Smyth % (Auto) 4.8 % 05/26/23 00:02 Eos % (Auto) 1.3 % 05/26/23 00:02 Baso % (Auto) 0.6 % 05/26/23 00:02 Neut # (Auto) 3.79 10^3/uL (1.8-7.7) 05/26/23 00:02 Lymph # (Auto) 3.9 10^3/uL (0.8-4.8) 05/26/23 00:02 Smyth # (Auto) 0.4 10^3/uL (0.2-0.9) 05/26/23 00:02 Eos # (Auto) 0.1 10^3/uL (0.0-0.8) 05/26/23 00:02 Baso # (Auto) 0.1 10^3/uL (0.0-0.1) 05/26/23 00:02 Nucleated RBC % (auto) 0 % 05/26/23 00:02 Nucleated RBCs # 0.0 /100WBC 05/26/23 00:02 Sodium 141 mmol/L (136-145) 05/26/23 00:02 Potassium 3.9 mmol/L (3.5-5.1) 05/26/23 00:02 Chloride 105 mmol/L (98-107) 05/26/23 00:02 Carbon Dioxide 26 mmol/L (22-29) 05/26/23 00:02 Anion Gap 13.9 (5-19) 05/26/23 00:02 BUN 6 mg/dL (6-20) 05/26/23 00:02 Creatinine 1.1 mg/dL (0.5-0.9) H 05/26/23 00:02 GFR Calculation 55.0 mL/min (90-130) L 05/26/23 00:02 Glucose 87 mg/dL (65-115) 05/26/23 00:02 Calculated Osmolality 289 mOsm/kg (285-295) 05/26/23 00:02 Calcium 9.0 mg/dL (8.5-10.5) 05/26/23 00:02 Total Bilirubin 0.2 mg/dL (0.15-1.2) 05/26/23 00:02 AST 13 U/L (0-32) 05/26/23 00:02 ALT 45 U/L (0-33) H 05/26/23 00:02 Alkaline Phosphatase 54 U/L (35-105) 05/26/23 00:02 Total Protein 6.3 g/dL (6.6-8.7) L 05/26/23 00:02 Albumin 4.0 g/dL (3.5-5.2) 05/26/23 00:02 Globulin 2.3 g/dL (1.3-4.6) 05/26/23 00:02 TSH 0.63 uIU/mL (0.27-4.20) 05/26/23 00:02 HCG, Qual Negative (Negative) 05/26/23 00: Urine Color Yellow (Yellow) 05/26/23 00:26 Urine Appearance Clear (CLEAR) 05/26/23 00:26 Urine pH 6 (5-7) 05/26/23 00:26 Ur Specific Whiting 1.015 (1.005-1.030) 05/26/23 00:26 Urine Protein Neg (Negative) 05/26/23 00:26 Urine Glucose (UA) Norm (Normal) 05/26/23 00: Urine Ketones Negative (Negative) 05/26/23 00:26 Urine Blood 2+ (Negative) H 05/26/23 00:26 Urine Nitrate Negative (Negative) 05/26/23 00:26 Urine Bilirubin Neg (Negative) 05/26/23 00:26 Urine Urobilinogen Norm mg/dL (Negative) 05/26/23 00:26 Ur Leukocyte Esterase Trace (Negative) H 05/26/23 00:26 Urine RBC 0-4 /hpf (0-2) H 05/26/23 00:26 Urine WBC 0-4 /hpf (0-5) H 05/26/23 00:26 Ur Squamous Epith Cells 5-10 /hpf (0-5) H 05/26/23 00:26 Amorphous Sediment Not Reportable 05/26/23 00:26 Urine Bacteria Trace /hpf (NONE) 05/26/23 00:26 Urine Mucus Trace /hpf 05/26/23 00:26 Salicylates 0.5 mg/dL (3-10) L 05/26/23 00:02 Urine Opiates Screen Positive ng/mL (Negative) H 05/26/23 00:26 Acetaminophen 21.2 ug/mL (10-30) 05/26/23 00:02 Ur Barbiturates Screen Negative ng/mL (Negative) 05/26/23 00:26 Ur Phencyclidine Scrn Negative ng/mL (Negative) 05/26/23 00:26 Ur Amphetamines Screen Positive ng/mL (Negative) H 05/26/23 00:26 U Benzodiazepines Scrn Negative ng/mL (Negative) 05/26/23 00:26 Urine Cocaine Screen Negative ng/mL (Negative) 05/26/23 00:26 U Marijuana (THC) Screen Negative ng/mL (Negative) 05/26/23 00:26 Ethyl Alcohol < 10 mg/dL (0-10) 05/26/23 00:02 Discharge Plan Discharge Patient Disposition: Admitted As Inpatient Clinical Impression: Suicidal ideation Condition: Stable Coding Level of Care Code ED Stations Superintendent for Chg Fwd Documented by User: Raulito Pradhan DO 05/26/23 01:32 HPI - Psych General: Chief Complaint: Psychiatric Symptoms Stated Complaint: Si Time Seen by Provider: 05/25/23 23:49 PFSH ED PFSH: Medical History Psychiatric care Tubal Surgical History H/O: hysterectomy Social History Smoking and tobacco status: current every day smoker cigarettes Packs smoked per day: 1.5 Years cigarettes smoked: 18 Quit status (tobacco): has tried quititng Number of times tried to quit tobacco: 3 Second hand smoke exposure: Yes Smoking risk assessment/counseling performed?: No Course Vital Signs: Vital signs: Vital Signs Temperature 97.7 F 05/25/23 23:44 Pulse Rate 110 H 05/25/23 23:44 Respiratory Rate 18 05/25/23 23:44 Blood Pressure 115/77 05/25/23 23:44 Pulse Oximetry 97 05/25/23 23:44 Oxygen Delivery Me thod Room Air 05/25/23 23:44 MDM - Psych Medical Decision Making 42-year-old female comes in today for complaints of increased suicidal thoughts and depression. Patient reports the last 2 to 3 days she has had worsening sym ptoms. Patient does not have a specific plan for suicide. Respirations are even lungs are clear to auscultation. Vital signs are normal. Patient denies any pain or fever. Differential diagnosis includes major depressive disorder recurrent, substance use disorder, suicidal ideation. Reviewed patient with Dr. Ayala who accepted patient for admission to neuropsychiatric unit. Patient was voluntary for the admission. Reviewed patient with my attending, Dr. Pradhan whom no orders for admission. Chart reviewed and patient discussed with midlevel. Agree with assessment and plan. Medical Records I reviewed the patient's medical records. Lab Data I reviewed the patient's lab results. 05/26/23 00:02 05/26/23 00:02 Laboratory Results WBC 8.3 10^3/uL (4.0-10.0) 05/26/23 00:02 RBC 4.23 10^6/uL (4.1-5.3) 05/26/23 00:02 Hgb 12.8 g/dL (11.5-15.3) 05/26/23 00:02 Hct 39.4 % (37.0-47.0) 05/26/23 00:02 MCV 93.1 fl (81-99) 05/26/23 00:02 MCH 30.3 pg (28.0-34.0) 05/26/23 00:02 MCHC 32.5 g/dL (30.0-36.0) 05/26/23 00:02 RDW 13.6 % (12.1-15.1) 05/26/23 00:02 Plt Count 230 10^3/cmm (130-400) 05/26/23 00:02 MPV 8.9 fL (7.4-10.4) 05/26/23 00:02 Neut % (Auto) 45.9 % 05/26/23 00:02 Lymph % (Auto) 47.0 % 05/26/23 00:02 Smyth % (Auto) 4.8 % 05/26/23 00:02 Eos % (Auto) 1.3 % 05/26/23 00:02 Baso % (Auto) 0.6 % 05/26/23 00:02 Neut # (Auto) 3.79 10^3/uL (1.8-7.7) 05/26/23 00:02 Lymph # (Auto) 3.9 10^3/uL (0.8-4.8) 05/26/23 00:02 Smyth # (Auto) 0.4 10^3/uL (0.2-0.9) 05/26/23 00:02 Eos # (Auto) 0.1 10^3/uL (0.0-0.8) 05/26/23 00:02 Baso # (Auto) 0.1 10^3/uL (0.0-0.1) 05/26/23 00:02 Nucleated RBC % (auto) 0 % 05/26/23 00:02 Nucleated RBCs # 0.0 /100WBC 05/26/23 00:02 Sodium 141 mmol/L (136-145) 05/26/23 00:02 Potassium 3.9 mmol/L (3.5-5.1) 05/26/23 00:02 Chloride 105 mmol/L (98-107) 05/26/23 00:02 Carbon Dioxide 26 mmol/L (22-29) 05/26/23 00:02 Anion Gap 13.9 (5-19) 05/26/23 00:02 BUN 6 mg/dL (6-20) 05/26/23 00:02 Creatinine 1.1 mg/dL (0.5-0.9) H 05/26/23 00:02 GFR Calculation 55.0 mL/min (90-130) L 05/26/23 00:02 Glucose 87 mg/dL (65-115) 05/26/23 00:02 Calculated Osmolality 289 mOsm/kg (285-295) 05/26/23 00:02 Calcium 9.0 mg/dL (8.5-10.5) 05/26/23 00:02 Total Bilirubin 0.2 mg/dL (0.15-1.2) 05/26/23 00:02 AST 13 U/L (0-32) 05/26/23 00:02 ALT 45 U/L (0-33) H 05/26/23 00:02 Alkaline Phosphatase 54 U/L (35-105) 05/26/23 00:02 Total Protein 6.3 g/dL (6.6-8.7) L 05/26/23 00:02 Albumin 4.0 g/dL (3.5-5.2) 05/26/23 00:02 Globulin 2.3 g/dL (1.3-4.6) 05/26/23 00:02 TSH 0.63 uIU/mL (0.27-4.20) 05/26/23 00:02 HCG, Qual Negative (Negative) 05/26/23 00: Urine Color Yellow (Yellow) 05/26/23 00:26 Urine Appearance Clear (CLEAR) 05/26/23 00:26 Urine pH 6 (5-7) 05/26/23 00:26 Ur Specific Whiting 1.015 (1.005-1.030) 05/26/23 00:26 Urine Protein Neg (Negative) 05/26/23 00:26 Urine Glucose (UA) Norm (Normal) 05/26/23 00: Urine Ketones Negative (Negative) 05/26/23 00: Urine Blood 2+ (Negative) H 05/26/23 00:26 Urine Nitrate Negative (Negative) 05/26/23 00:26 Urine Bilirubin Neg (Negative) 05/26/23 00:26 Urine Urobilinogen Norm mg/dL (Negative) 05/26/23 00:26 Ur Leukocyte Esterase Trace (Negative) H 05/26/23 00:26 Urine RBC 0-4 /hpf (0-2) H 05/26/23 00:26 Urine WBC 0-4 /hpf (0-5) H 05/26/23 00:26 Ur Squamous Epith Cells 5-10 /hpf (0-5) H 05/26/23 00:26 Amorphous Sediment Not Reportable 05/26/23 00:26 Urine Bacteria Trace /hpf (NONE) 05/26/23 00:26 Urine Mucus Trace /hpf 05/26/23 00:26 Salicylates 0.5 mg/dL (3-10) L 05/26/23 00:02 Urine Opiates Screen Positive ng/mL (Negative) H 05/26/23 00:26 Acetaminophen 21.2 ug/mL (10-30) 05/26/23 00:02 Ur Barbiturates Screen Negative ng/mL (Negative) 05/26/23 00:26 Ur Phencyclidine Scrn Negative ng/mL (Negative) 05/26/23 00:26 Ur Amphetamines Screen Positive ng/mL (Negative) H 05/26/23 00:26 U Benzodiazepines Scrn Negative ng/mL (Negative) 05/26/23 00:26 Urine Cocaine Screen Negative ng/mL (Negative) 05/26/23 00:26 U Marijuana (THC) Screen Negative ng/mL (Negative) 05/26/23 00:26 Ethyl Alcohol < 10 mg/dL (0-10) 05/26/23 00:02 Discharge Plan Discharge Patient Disposition: Admitted As Inpatient Clinical Impression: Suicidal ideation Condition: Stable Coding Level of Care Code ED Stations Superintendent for Louis Younger
[2023-05-26 00:27] LABS: HCG, Serum Qual Negative (Negative)
[2023-05-26 00:40] LABS: Acetaminophen 21.2 ug/mL (10-30); Alanine Aminotransferase 45 U/L (0-33); Alcohol Level < 10 mg/dL (0-10); Alkaline Phosphatase 54 U/L (35-105); Anion Gap 13.9 (5-19); Aspartate Amino Transferase 13 U/L (0-32); Blood Urea Nitrogen 6 mg/dL (6-20); Carbon Dioxide 26 mmol/L (22-29); Chloride 105 mmol/L (98-107); Globulin 2.3 g/dL (1.3-4.6); Glucose 87 mg/dL (65-115); Osmolality Calculated 289 mOsm/kg (285-295); Potassium 3.9 mmol/L (3.5-5.1); Salicylate 0.5 mg/dL (3-10); Sodium 141 mmol/L (136-145); Thyroid Stimulating Hormone 0.63 uIU/mL (0.27-4.20); Total Bilirubin 0.2 mg/dL (0.15-1.2); Total Protein 6.3 g/dL (6.6-8.7)
[2023-05-26 00:50] LABS: Specific Gravity, Urine 1.015 (1.005-1.030); Urine Appearance Clear (CLEAR); Urine Color Yellow (Yellow); pH Urine 6 (5-7)
[2023-05-26 00:51] LABS: Add Urine Microscopic? YES; Bilirubin Urine Neg (Negative); Blood Urine 2+ (Negative); Glucose Urine UA Norm (Normal); Ketones Urine Negative (Negative); Leukocyte Esterase Urine Trace (Negative); Nitrate Urine Negative (Negative); Protein Urine Neg (Negative); Urobilinogen Urine Norm (Negative)
[2023-05-26 00:54] LABS: Amphetamines Screen Urine Positive (Negative); Barbiturates Screen Urine Negative (Negative); Benzodiazepines Screen Urine Negative (Negative); Cocaine Screen Urine Negative (Negative); Opiate Screen Urine Positive (Negative); PCP Screen Urine Negative (Negative); THC Screen Urine Negative (Negative)
[2023-05-26 00:55] LABS: Bacteria Urine TRACE /hpf; Mucus Urine TRACE /hpf; RBC Urine 0-4 /hpf (0-2); WBC Urine 0-4 /hpf (0-5)
[2023-05-26 02:06] VITALS: BP 118/77; PULSE 96; RESP 20; TEMP 36.8; O2SAT 98
[2023-05-26] MEDS: trazodone 50 mg Tablet PO ×2 (02:28→20:36)
--- NOTE | 2023-05-26 02:51 | PC.ADMIT ---
[address] Admission Note: The patient,Kendra Tucker,42 y/o, was given written information regarding hospital policies, unit procedures and contact persons. Patient's smoking status: current every day smoker. 2 PACKS A DAY Vital Signs - 8 hr 05/25/23 23:44 05/26/23 02:37 05/26/23 02:06 Temperature 97.7 F 98.2 F Pulse Rate 110 H 96 Respiratory Rate 18 20 H Blood Pressure 115/77 118/77 Pulse Oximetry 97 98 Oxygen Delivery Method Room Air Room Air Room Air ADMITTED FROM ER VIA WHEELCHAIR AND SECURITY AT SIDE. PT IS VOLUNTARY AT THIS TIME. PT REPORTS SHE STARTED HAVING THOUGHTS OF SUICIDE 2 DAYS AGO WITH NO PLAN. REPORTS PRIOR SUICIDE ATTEMPT BY OVERDOSE BUT CAN NOT GIVE A DATE OF LAST ATTEMPT. PT ADMITS TO ALCOHOL AND DRUG ABUSE. PT STATES I THINK I DID METH A FEW DAYS AGO, URINE DRUG SCREEN POSITIVE FOR METHAMPHETAMINES AND OPIATES. PT DENIES OPIATE USE. PT HAS FLIGHT OF IDEAS AND DISORGANIZED THOUGHT PROCESS. SHE STANDS DURING ASSESSMENT, SWAYING AND IS OBSERVED TO HAVE SPORADIC TICS AT TIMES. PT IS UNABLE TO PROCESS QUESTIONS AND UNABLE TO ANSWER FOR THE MOST PART. MOST OF THE INTERVIEW QUESTIONS SHE COULD NOT REMEMBER THE ANSWER. PT REQUESTED MEDICATION TO HELP HER SLEEP. RN GAVE TRAZODONE ORDERED FOR SLEEP. SKIN ASSESSMENT REVEALED MULTIPLE TATTOOS, SKIN WAS CLEAR. ALL PAPER WORK SIGNED. DENIES PAIN. DENIES HI, ENDORSES SUICIDAL THOUGHTS WITH NO SPECIFIC PLAN. REPORTS AT TIMES SHE HAS AVH. PT MADE COMFORTABLE AND IS CURRENTLY IN BED RESTING IN NO DISTRESS. ALL QUESTIONS ANSWERED AND SUPPORT WAS VOICED.
[2023-05-26 06:00] VITALS: BP 107/70; PULSE 78; RESP 16; O2SAT 95
--- NOTE | 2023-05-26 11:01 | P.NPUHP_ITS ---
Providers/Chief Complaint Admitting Physician: Jarett Ayala MD Chief Complaint: Si HPI NPU History of Present Illness Kendra Tucker is a 42 year old female who presented to the Emergency Department with the following report: Chief Complaint: Psychiatric Symptoms Stated Complaint: Si Time Seen by Provider: 05/25/23 23:49 History of Present Illness: 42-year-old female comes in [facility] with complaints of suicidal ideation. Patient reports increasing depression and suicidal thoughts. Patient has no specific plan. Patient has a history of substance use disorder. Patient reports symptoms have been increasing over the last 3 days. Patient reports nicotine use and occasional alcohol and methamphetamine. Patient reports its been over a month since her last methamphetamine use. complaint: suicidal ideation Onset (ago): day(s) Duration: getting worse History of same: Yes Relieving factors: none Exacerbating factors: none Associated psychiatric symptoms: depression Associated symptoms: Reports no associated symptoms, depression and suicidal ideation. She was admitted to the neuropsychiatric unit for definitive treatment of those issues. She was seen by this junior technical writer back in August 2022 and presented with a UDS positive for opiates, amphetamines and benzodiazepines on that visit and this time her UDS was positive for the same except for benzodiazepines. An excerpt of the August discharge summary is included below for context. Patient presents today reporting that things are really stressful currently. She reports that after she left in August things did not go very well. She followed up initially but then fell off quickly. She reports that she did not get her refills and stopped taking the medication. She reports, as the UDS shows that she relapsed and is struggling with her addiction. She reports that her living arrangement is not very stable with her boyfriend or what ever you would call him now threatening to kick her out all the time. She reports that otherwise there have been no significant changes and she knew she needed to get things back on track again. We discussed the risks, benefits and alternatives of restarting the medications she had was on before and she understood and agreed to proceed as is documented in this note. 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 Allegedly, the patient's child had informed staff at at the school that he attends that Selene was hearing voices telling her to hurt this child. The patient had allegedly shown up in the school at the school and shortly afterwards the police had picked her up and taken her to [facility]. The patient's [facility]CI had received a call from the school counselor and the patient's son had reported to that counselor that the mother had been hearing voices telling her to harm herself and engaged in negative derogatory statements towards the patient. The patient had revealed to the ACI that she had not been on her psychiatric medications for several days. She was placed on a 96-hour hold and was placed on the neuropsychiatric unit for definitive treatment and evaluation. She is unable to provide any reasonable detailed history on interview both briefly in the emergency department and upon arrival at the NPU. Psychiatric History: see below, most recent outpatient psychiatric visit was at [facility] in February 2022. Previous records reveal psychiatric me dications including Risperdal 2 mg 3 times a day Cymbalta 60 mg daily trazodone 100 mg at night Wellbutrin 150 mg in the morning and Cogentin 2 mg at night patient has a history of. Multiple inpatient hospitalizations with a history of psychotic symptoms that appear to have been initially induced by methamphetamine. Current Medications: none Medical history: History of back pain Surgeries: None Allergies: No known drug allergies Family History: Father had schizophrenia and committed suicide she also had a history of bipolar in other family members. Drug and Alcohol History: per previous records, the patient had begun methamphetamine use periodically at the age of 18 throughout her 20s and r eported heavy use beginning around the age of 37. Previous records support that the patient continues to use methamphetamine periodically. She had also reported active use of opiates beginning as a teenager through oral intake and examination of previous records indicate the patient has had some opiate related withdrawals symptoms. Previous records also indicate that the patient had developed significant psychotic symptoms that persisted even in the absence of her methamphetamine use but particularly worse during active use. Alcohol and marijuana has been used periodically since she was a teenager. Social History: See previous records below, as patient unable to provide any details. Previous Evaluation from November [address] Deluna at [facility] Chief Complaint: I was hearing voices and was hospitalized with suicidal ideations History of Present Illness: This is a 39-year-old white female who had no past psychiatric history previous to 2017. She now carries a diagnosis of schizophrenia after being hospitalized a total of 4 times over the last 15 sun including 3 times in [place] for 1 to 2 weeks at a time and a 4-day admission September 2019@[email or web address] for 4 days in the context of hearing voices having suicidal ideations and taking an overdose on Tylenol PM. Patient says she started having problems hearing voices approximately 1 year ago. This was in the context of heavy methamphetamine use. She says she first used meth around age 18 and used off and on throughout her 20s but starting about 2 years ago her and her fianc? started daily heavy use and she subsequently developed hallucinations about a year into that use pattern. Previous to this meth binge she had had no hallucinations or delusions in the past no previous psychiatric treatment or exposure. She has a father who has a history of schizophrenia and committed suicide there is also bipolar in the family and is unclear if those are substance related as well. What is clear is that her heavy methamphetamine use most likely solely responsible for her psy chotic symptoms. At this point she is diagnosed with schizophrenia for lack of a better term because she is been sober from meth since April 2019 however I would classify this is substance-induced psychosis that is now persistent. She tells me she been sober from all substances since April 2019 when she was hospitalized in September she was positive for opioids tells me that she is also taking hydrocodone from the street at least 3 to 4 pills a day for a number of years. She is also been a marijuana and alcohol user off and on throughout her life. Currently she tells me that she is no longer hearing voices since starting consistently taking Haldol in September 2019. She is sleeping 8 hours a night and denies any current suicidal thoughts overall psychiatric perspective she is doing quite well however she is having significant mood related problems related to her taking of Haldol most likely. She exhibits significant head arm and leg movements throughout the appointment says this started in October which is about 1 month after she was taking Haldol consistently. History Past Psychiatric History: She been hospitalized 4 times in the last 15 months 3 times in [place] and one time at [facility]. The admissions range from 4 days to 2 weeks for psychotic symptoms such as hearing voices and at times suicidal thoughts. The voice that she tends to hear her multiple and varied and at times were commanding in nature. Medications been treated on Haldol, mirtazapine, and Cogentin. Family History: Father had schizophrenia and committed suicide she also had a history of bipolar in other family members. Past Medical History: She has some back pain Substance Use History: Methamphetamine: She first used at age 18 use periodically throughout her 20s at age 37 started using heavy daily use for approximately 2 years. Last use was April 2019 Opioids: Started taking opioid pills as a teenager is used periodically throughout her life 3 to 4 pills a day for the last 4 years has been her most recent use. She is currently taking some opioids by prescription for dental reasons but says she has not taking illicit opioids since April 2019 however she did test positive in September. Alcohol and marijuana: She is used periodically since he was a teenager but denies current use. She has been a heavy user at times in the past Social History: Dropped out of school in eighth grade when she got and received her GED. She had been and had one year of college she is been twice she has 3 children in total ages 21 and 17 a 17-year-old currently lives with her father. She also has a 5-year-old with her current fianc? who her mother has while the patient has been having substance and emotional difficulties. 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 Previous Hospitalization at [facility] in November of 2018: Dr. Ayala Chief Complaint: I tried to kill myself. I got tired of hearing voices. HPI: History of present illness: Kendra Vigil is a 39-year-old woman who was admitted to the psychiatric unit after she apparently overdosed on Tylenol PM. She is not considered a reliable informant as she does not provide coherent details of the events leading up to her overdose. She says that she was hearing voices but they were not commanding her to to end her life or to do anything dangerous. She cannot give an explanation of the events leading to her overdose or her thinking at the time. It is not even clear whether this was an overdose. She denies suicidal or homicidal ideation at this time. She reports that she hears voices that are multiple voices. She thinks that she might know they are they are disguising her voice. She says that they don't tell her what to do or give her commands but they seem to take over her body. For example, they make her dance. She would not elaborate. She engages in Keiko and enjoyable activity. She denies that she is depressed though she is distressed over her current romantic relationship. She has had a problem with abuse of a variety of substances in the past. She is proud that she has gotten off of everything pain pills. She takes hydrocodone 3-4 day . Urine drug screen was positive only for opiates. She is displaying no signs of withdrawal. Historically, the patient reports no mental health history up until approximately 7 months ago. At that time she began hearing voices. Prior to that she had never seen a psychiatrist or been in counseling. She never been hospitalized. 3 months ago she was hospitalized at [facility] for 3 weeks. They told her that she had schizophrenia and started on her on medication for voices. She said that they help but she eventually ran out of prescription. She is now been off of it for a month. She is not remember the name medication. She does not remember any side effects. She did take it twice a day. She says that it was effective. Item Value Date Time Urine Opiates Screen POSITIVE ng/mL H 09/07/19 1516 Urine Barbiturates Screen NEGATIVE ng/mL 09/07/19 1516 Urine Phencyclidine Screen NEGATIVE ng/mL 09/07/19 1516 Urine Amphetamines Screen NEGATIVE ng/mL 09/07/19 1516 Urine Benzodiazepines Screen NEGATIVE ng/mL 09/07/19 1516 Urine Cocaine Screen NEGATIVE ng/mL 09/07/19 1516 Urine Marijuana (THC) Screen NEGATIVE ng/mL 09/07/19 1516 Ethyl Alcohol Level < 10 mg/dL 09/07/19 1515 Vital Signs Label Value Date Time Blood Pressure Assessment 93/55 (67) 09/08/19 1236 Source Automatic Cuff Pulse 101 09/08/19 1236 Location Left Radial Emergency room note: Chief Complaint: ANXIOUS, BEHAVIOR CHANGE and SUICIDAL THOUGHTS and DELUSIONAL and AUDITORY HALLUCINATIONS. This started last night. (39 yo female presents to ED with complaints of anxiety, suicidal thoughts, delusions, auditory hallucinations and bizarre behavior. The patient states she woke up and felt a little confused. She said she did not want to go to sleep after she took the Tylenol PM (she took 2). Her boyfriend states she has been hearing voices for a while. She and her boyfriend state she has plans of harming herself but has no specific plan. She said she thought people were coming after her so she got a little scared. She said sometimes the pain is overwhelming, it goes to the back and then to the top of her head. She then began rubbing the top of her head/picking at her head.). Mental health history: See above. Family mental health history is negative. Social history: Patient grew up in [place]. She did not graduate from high school but got her GED and has taken some college classes. She currently lives with her boyfriend out. Their relationship is roosevelt. She denies any history of physical or emotional abuse. She alludes to the likelihood that he has a significant drug abuse problem. However she is very unclear on their relationship. She has no children. She works 9 hours a week but did not understand her was that she worked. Legal history: Public record indicates no criminal activity. However she has had considerable financial difficulty and appears to have had a lawsuit filed against her within the past month by [employer]. Past medical history: She is status post hysterectomy. I refer you to her emergency room notes for further medical details. Hospital Course Hospital Course She quickly acclimated to the individual, group and milieu therapies provided. She was open to receiving medications to assist with her psychosis and depression. Abilify 10 mg p.o. every morning, Lexapro 10 mg p.o. every morning, and trazodone 100 mg p.o. were initiated and she had significant improvement. She was able to contract for safety outside of the hospital prior to discharge. During the hospitalization, patient had routine laboratory studies which were within normal limits except for few outliers. Additionally there was a general medical evaluation which was also within normal limits and revealed no new acute processes. Discharge Summary: At the time of discharge, she denies psychosis or lethality. Mood and anxiety were well managed. Patient endorsed a plan to avoid all drugs of abuse and follow-up with the aftercare recommendations of the treatment team. Patient was evaluated and deemed to be absent credible lethality, and was a voluntary patient no longer desiring inpatient hospitalization, so she was discharged. Meds NPU Home Medications Medication Instructions Recorded Confirmed Last Taken Type No Known Home Medications 04/12/23 05/26/23 Unknown History Allergies Allergy/AdvReac Type Severity Reaction Status Date / Time No Known Allergies Allergy Verified 09/26/22 01:31 PFSH NPU PFSH: Medical History Psychiatric care Tubal Surgical History H/O: hysterectomy Social History Smoking and tobacco status: current every day smoker cigarettes Packs smoked per day: 1.5 Years cigarettes smoked: 18 Quit status (tobacco): has tried quititng Number of times tried to quit tobacco: 3 Second hand smoke exposure: Yes Smoking risk assessment/counseling performed?: No Mental Status Exam MSE Comments: This is an overweight white female appearing her stated age in hospital scrubs with adequate eye contact and limited grooming/poor hygiene. Poor dentition. No abnormal movements except for mild psychomotor retardation. Cooperative with exam in mild distress. Speech was slightly decreased rate and volume. Mood described as struggling, affect congruent. Thought process organized. Thought content: Patient denied suicidal or homicidal ideation, there were no delusions reported or noted, she denied auditory or visual hallucinations. Attention and concentration appeared intact and memory appeared reliable but none were formally tested. She alert and oriented x3. Insight and judgment appeared limited and impulse control limited. Vitals/I&O/Wt Last Vital Signs Temp 98.2 F 05/26/23 02:06 Pulse 78 05/26/23 06:00 Resp 16 05/26/23 06:00 BP 107/70 05/26/23 06:00 Pulse Ox 95 05/26/23 06:00 O2 Del Method Room Air 05/26/23 06:00 Weight last 48 hrs Weight 63.503 kg Data NPU 05/26/23 00:02 05/26/23 00:02 A&P Assessment and plan (1) Suicidal ideation: (2) Opioid use disorder, moderate, dependence: (3) Amphetamine use disorder, severe, in early remission: (4) Schizophrenia: Plan Patient is a 42-year-old white female with a history of methamphetamine induced psychotic disorder currently but not currently acutely psychotic and voluntary on this visit with active addiction and noncompliance with her psychotropic medications. 1. Continue current medication. Restart Abilify and Lexapro 10 mg daily which was her previous medication regimen. 2.? Encourage individual, group and milieu therapy 3.? Continue q-15 minute check for safety 4. Recommend sober living treatment at the highest level of care to which the patient is willing to commit. Involuntary Hold Information 96 Hour Hold: 96 Hour Involuntary Admission: No Attestations NPU Medical Necessity Statement*: Inpatient hospitalization is medically necessary and the clinically appropriate intervention at this time. We will monitor medications and make changes as indicated. Patient will be in the hospital for over two midnights. Likely length of stay is 5-7 days. Coding Level of Care Code Acute Code for [facility] Diagnoses Suicidal ideation R45.851 Opioid use disorder, moderate, dependence F11.20 Amphetamine use disorder, severe, in early remission F15.21 Schizophrenia F20.9
[2023-05-26] MEDS: nicotine 2 mg Gum BUCCAL ×2 (12:21→18:57)
[2023-05-26 14:00] VITALS: BP 99/60; PULSE 108; RESP 16; TEMP 36.6; O2SAT 99
[2023-05-26] MEDS: acetaminophen 325 mg Tablet 650 MG PO (14:17)
--- NOTE | 2023-05-26 18:54 | PC.NURSE ---
Pt begging for a smoke outside, pt also asking to leave. Pt encouraged to stay by this nurse.
[2023-05-26 19:29] VITALS: BP 93/61; PULSE 88; RESP 22; TEMP 36.6; O2SAT 99
[2023-05-26] MEDS: ibuprofen 600 mg Tablet PO (20:35)
[2023-05-27 06:00] VITALS: BP 96/59; PULSE 65; RESP 16; O2SAT 97
--- NOTE | 2023-05-27 07:39 | W.PM.NPUPNS ---
Subjective NPU Subjective: Patient presented today reporting that she is doing a little better. She was very focused on somatic complaints and possibly getting medication for pain and reported this is a significant problem at home. We discussed challenges related to her addiction history and making sure that an outpatient doctor who specializes in these concerns made these decisions. We discussed using Tylenol and ibuprofen in this setting. Otherwise she was talking about discharge and we discussed the social work team being in tomorrow and utilizing them to begin to explore how to get her reconnected with resources. Mental Status Exam MSE Comments: This is an overweight white female appearing her stated age in hospital scrubs with adequate eye contact and limited grooming/poor hygiene. Poor dentition. No abnormal movements except for mild psychomotor retardation. Cooperative with exam in mild distress. Speech was slightly decreased rate and volume. Mood described as struggling, affect congruent. Thought process organized. Thought content: Patient denied suicidal or homicidal ideation, there were no delusions reported or noted, she denied auditory or visual hallucinations. Attention and concentration appeared intact and memory appeared reliable but none were formally tested. She alert and oriented x3. Insight and judgment appeared limited and impulse control limited. Vitals/I&O/Wt Last Vital Signs Temp 98 F 05/26/23 19:29 Pulse 65 05/27/23 06:00 Resp 16 05/27/23 06:00 BP 96/59 05/27/23 06:00 Pulse Ox 97 05/27/23 06:00 O2 Del Method Room Air 05/26/23 19:29 Weight last 48 hrs Weight 63.412 kg Weight 63.503 kg Data NPU 05/26/23 00:02 05/26/23 00:02 A&P Assessment and plan (1) Suicidal ideation: (2) Opioid use disorder, moderate, dependence: (3) Amphetamine use disorder, severe, in early remission: (4) Schizophrenia: Plan Patient is a 42-year-old white female with a history of methamphetamine induced psychotic disorder currently but not currently acutely psychotic and voluntary on this visit with active addiction and noncompliance with her psychotropic medications. 1. Continue current medication. Restart Abilify and Lexapro 10 mg daily which was her previous medication regimen. 2.? Encourage individual, group and milieu therapy 3.? Continue q-15 minute check for safety 4. Recommend sober living treatment at the highest level of care to which the patient is willing to commit. Involuntary Hold Information 96 Hour Hold: 96 Hour Involuntary Admission: No Attestations NPU Medical Necessity Statement*: Inpatient hospitalization is medically necessary and the clinically appropriate intervention at this time. We will monitor medications and make changes as indicated. Likely length of stay is 3-5 days. Coding Level of Care Code Acute Code for g [facility]wd Diagnoses Suicidal ideation R45.851 Opioid use disorder, moderate, dependence F11.20 Amphetamine use disorder, severe, in early remission F15.21 Schizophrenia F20.9
--- NOTE | 2023-05-27 08:50 | PC.NURSE ---
During morning assessment, patient polite and cooperative. Patient stated that she has anxiety and depression because her home life is unstable. Patient reports not knowing from day to day whether her BF will make her leave. Patient says that her BF has multiple whores that he brings around. Patient states that his treatment of her makes her have SI. Patient denies SI, HI, AVH at this time. This nurse informed patient of director of casework and their roles in getting patients set up with places to go.
[2023-05-27] MEDS: acetaminophen 325 mg Tablet 650 MG PO (11:26)
[2023-05-27] MEDS: nicotine 2 mg Gum BUCCAL ×2 (11:46→17:15)
[2023-05-27] MEDS: ibuprofen 600 mg Tablet PO (11:47)
--- NOTE | 2023-05-27 11:48 | PC.NURSE ---
Patient at nurses station, getting worked up. Patient is muttering under her breath about signing her self out so she can have a cigarrette
[2023-05-27 14:00] VITALS: BP 91/58; PULSE 85; RESP 16; TEMP 36.9; O2SAT 98
[2023-05-27] MEDS: OLANZapine 5 mg ODT PO (15:53)
[2023-05-27] MEDS: acetaminophen 500 mg Tablet 1000 MG PO (15:53)
--- NOTE | 2023-05-27 16:02 | PC.NURSE ---
Patient was crying loudly on the bench, head in her hands. This nurse observed tears and snot dripping down. Patient reporting pain in her neck, back and hips from being thrown around a lot , per patient. Dr. Ayala gave a written order to this nurse for 1000mg Acetaminophen PO @6H and Ibuprofen 800mg every 8 hours. This nurse gave patient 1000mg Acetaminophen. Patient being verbally aggressive, yelling at staff during this time. Patient switched from being aggressive to being apologetic to staff. This nurse administered 5mg Zyprexa to patient. Patient was escorted to her room where this nurse gave her a wet wash cloth for her eyes. Patient was still upset, stating she wanted a Xanax to calm her down. This nurse reiterated that the Zyprexa should help with that. Will continue to closely monitor patient.
[2023-05-27] MEDS: trazodone 50 mg Tablet PO (23:47)
[2023-05-28 06:00] VITALS: BP 100/72; PULSE 74; RESP 18; TEMP 36.6; O2SAT 97
--- NOTE | 2023-05-28 07:41 | PC.NURSE ---
Patient states that she has anxiety. Patient denies Si, HI, AVH, and depression. Patient stated that she was already frustrated because she couldn't figure out how to turn on the TV. This nurse helped her. Patient was visibly agitated about not being able to work the TV.
[2023-05-28] MEDS: acetaminophen 500 mg Tablet 1000 MG PO ×2 (09:06→15:34)
[2023-05-28] MEDS: nicotine 21 mg Patch 1 PATCH TRANSDERMA (09:06)
[2023-05-28] MEDS: escitalopram 10 mg Tablet PO (09:41)
[2023-05-28] MEDS: ARIPiprazole 10 mg Tablet PO (09:41)
[2023-05-28] MEDS: ibuprofen 800 mg tablet PO (11:16)
[2023-05-28 14:00] VITALS: BP 118/77; PULSE 104; RESP 16; TEMP 36.8; O2SAT 99
--- NOTE | 2023-05-28 16:12 | W.PM.NPUPNS ---
Subjective NPU Subjective: Patient presented today reporting that she is working with the social work team on what her options are for discharge. She identified the challenges that are ongoing with her significant other as well as with her recovery. We discussed the importance of her maintaining her medication at as well as following through with sober living treatment. Mental Status Exam MSE Comments: This is an overweight white female appearing her stated age in hospital scrubs with adequate eye contact and limited grooming/poor hygiene. Poor dentition. No abnormal movements except for mild psychomotor retardation. Cooperative with exam in mild distress. Speech was slightly decreased rate and volume. Mood described as a little better, affect congruent. Thought process organized. Thought content: Patient denied suicidal or homicidal ideation, there were no delusions reported or noted, she denied auditory or visual hallucinations. Attention and concentration appeared intact and memory appeared reliable but none were formally tested. She alert and oriented x3. Insight and judgment appeared limited and impulse control limited. Vitals/I&O/Wt Last Vital Signs Temp 98.3 F 05/28/23 14:00 Pulse 104 H 05/28/23 14:00 Resp 16 05/28/23 14:00 BP 118/77 05/28/23 14:00 Pulse Ox 99 05/28/23 14:00 O2 Del Method Room Air 05/28/23 14:00 Weight last 48 hrs Weight 63.412 kg Data NPU 05/26/23 00:02 05/26/23 00:02 A&P Assessment and plan (1) Suicidal ideation: (2) Opioid use disorder, moderate, dependence: (3) Amphetamine use disorder, severe, in early remission: (4) Schizophrenia: Plan Patient is a 42-year-old white female with a history of methamphetamine induced psychotic disorder currently but not currently acutely psychotic and voluntary on this visit with active addiction and noncompliance with her psychotropic medications. 1. Continue current medication. Restarted Abilify and Lexapro 10 mg daily which was her previous medication regimen. 2.? Encourage individual, group and milieu therapy 3.? Continue q-15 minute check for safety 4. Recommend sober living treatment at the highest level of care to which the patient is willing to commit. Involuntary Hold Information 96 Hour Hold: 96 Hour Involuntary Admission: No Attestations NPU Medical Necessity Statement*: Inpatient hospitalization is medically necessary and the clinically appropriate intervention at this time. We will monitor medications and make changes as indicated. Likely length of stay is 2-4 days. Coding Level of Care Code Acute Code for g Fwd Diagnoses Suicidal ideation R45.851 Opioid use disorder, moderate, dependence F11.20 Amphetamine use disorder, severe, in early remission F15.21 Schizophrenia F20.9
[2023-05-28] MEDS: OLANZapine 5 mg ODT PO (17:14)
--- NOTE | 2023-05-28 17:15 | PC.NURSE ---
Patient anxious. This nurses attempts to distract patient were unsuccessful, per patient. Administered 5mg Zyprexa to patient. Will continue to monitor. Patient anxious because of her chronic hip, back, and neck pain. Patient isn't due for pain relieving medication for a while. Patient agitated
[2023-05-28 19:33] VITALS: BP 101/60; PULSE 79; RESP 18; TEMP 36.6; O2SAT 97
[2023-05-29 06:00] VITALS: BP 109/62; PULSE 66; RESP 16; O2SAT 96
[2023-05-29] MEDS: ARIPiprazole 10 mg Tablet PO (10:04)
[2023-05-29] MEDS: escitalopram 10 mg Tablet PO (10:04)
[2023-05-29] MEDS: acetaminophen 500 mg Tablet 1000 MG PO (11:03)
[2023-05-29] MEDS: nicotine 2 mg Gum BUCCAL (11:19)
[2023-05-29 14:00] VITALS: BP 110/60; PULSE 79; RESP 16; TEMP 36.6; O2SAT 97
--- NOTE | 2023-05-29 14:47 | W.PM.NPUPNS ---
Subjective NPU Subjective: Patient presented today reporting that she was feeling a little better. She reports she needs to call her significant other but she does not believe that she will have a place to go when she leaves. She reports that she is feeling better from the standpoint of medication as well and denies any significant side effects. We discussed the likelihood of discharge in the next 48 hours. Mental Status Exam MSE Comments: This is an overweight white female appearing her stated age in hospital scrubs with adequate eye contact and improving grooming/ hygiene. Poor dentition. No abnormal movements except for mild psychomotor retardation. Cooperative with exam in no acute distress. Speech was slightly decreased rate and volume. Mood described as better, affect congruent. Thought process organized. Thought content: Patient denied suicidal or homicidal ideation, there were no delusions reported or noted, she denied auditory or visual hallucinations. Attention and concentration appeared intact and memory appeared reliable but none were formally tested. She alert and oriented x3. Insight and judgment appeared limited and impulse control limited. Vitals/I&O/Wt Last Vital Signs Temp 97.9 F 05/29/23 14:00 Pulse 79 05/29/23 14:00 Resp 16 05/29/23 14:00 BP 110/60 05/29/23 14:00 Pulse Ox 97 05/29/23 14:00 O2 Del Method Room Air 05/29/23 14:00 Data NPU 05/26/23 00:02 05/26/23 00:02 A&P Assessment and plan (1) Suicidal ideation: (2) Opioid use disorder, moderate, dependence: (3) Amphetamine use disorder, severe, in early remission: (4) Schizophrenia: Plan Patient is a 42-year-old white female with a history of methamphetamine induced psychotic disorder currently but not currently acutely psychotic and voluntary on this visit with active addiction and noncompliance with her psychotropic medications. 1. Continue current medication. Restarted Abilify and Lexapro 10 mg daily which was her previous medication regimen. 2.? Encourage individual, group and milieu therapy 3.? Continue q-15 minute check for safety 4. Recommend sober living treatment at the highest level of care to which the patient is willing to commit. Involuntary Hold Information 96 Hour Hold: 96 Hour Involuntary Admission: No Attestations NPU Medical Necessity Statement*: Inpatient hospitalization is medically necessary and the clinically appropriate intervention at this time. We will monitor medications and make changes as indicated. Likely length of stay is 1-3 days. Coding Level of Care Code Acute Code for g Fwd Diagnoses Suicidal ideation R45.851 Opioid use disorder, moderate, dependence F11.20 Amphetamine use disorder, severe, in early remission F15.21 Schizophrenia F20.9
[2023-05-29] MEDS: trazodone 50 mg Tablet PO (20:25)
[2023-05-29 20:36] VITALS: BP 96/61; PULSE 76; RESP 20; TEMP 36.6; O2SAT 97
[2023-05-30 06:00] VITALS: BP 102/62; PULSE 76; RESP 15; O2SAT 95
[2023-05-30] MEDS: acetaminophen 500 mg Tablet 1000 MG PO (08:53)
[2023-05-30] MEDS: ARIPiprazole 10 mg Tablet PO (08:53)
[2023-05-30] MEDS: escitalopram 10 mg Tablet PO (08:53)
[2023-05-30] MEDS: ibuprofen 800 mg tablet PO (12:40)
[2023-05-30 14:00] VITALS: BP 109/65; PULSE 101; RESP 17; TEMP 36.7; O2SAT 98
--- NOTE | 2023-05-30 15:00 | P.NPUDS_ITS ---
Diagnoses at Discharge Discharge Diagnosis (1) Suicidal ideation: Status: Resolved (2) Opioid use disorder, moderate, dependence: Status: Acute (3) Amphetamine use disorder, severe, in early remission: Status: Acute (4) Schizophrenia: Status: Acute Reason for Visit Reason for Visit: Si Brief History: History of Present Illness Kendra Tucker is a 42 year old female who presented to the Emergency Department with the following report: Chief Complaint: Psychiatric Symptoms Stated Complaint: Si Time Seen by Provider: 05/25/23 23:49 History of Present Illness:?? 42-year-old female comes in [facility] with complaints of suicidal ideation.? Patient reports increasing depression and suicidal thoughts.? Patient has no specific plan.? Patient has a history of substance use disorder.? Patient reports symptoms have been increasing over the last 3 days.? Patient reports nicotine use and occasional alcohol and methamphetamine.? Patient reports its been over a month since her last methamphetamine use. ? MD complaint: suicidal ideation Onset (ago): day(s) Duration: getting worse History of same: Yes Relieving factors: none Exacerbating factors: none Associated psychiatric symptoms: depression Associated symptoms: Reports no associated symptoms, depression and suicidal ideation. She was admitted to the neuropsychiatric unit for definitive treatment of those issues.? She was seen by this life insurance underwriter back in August 2022 and presented with a UDS positive for opiates, amphetamines and benzodiazepines on that visit and this time her UDS was positive for the same except for benzodiazepines.? An excerpt of the August discharge summary is included below for context.? Patient presents today reporting that things are really stressful currently.? She reports that after she left in August things did not go very well.? She followed up initially but then fell off quickly.? She reports that she did not get her refills and stopped taking the medication.? She reports, as the UDS shows that she relapsed and is struggling with her addiction.? She reports that her living arrangement is not very stable with her boyfriend or what ever you would call him now threatening to kick her out all the time.? She reports that otherwise there have been no significant changes and she knew she needed to get things back on track again.? We discussed the risks, benefits and alternatives of restarting the medications she had was on before and she understood and agreed to proceed as is documented in this note. Per her 08/11/2022 [facility] inpatient psychiatric discharge summary: Discharge Diagnosis (1) Acute psychosis: ? ? ? Status: Resolved (2) Substance-induced psychotic disorder: ? ? ? Status: Acute (3) Auditory hallucinations: ? ? ? Status: Resolved Reason for Visit Reason for Visit:?? HALLUCINATIONS? 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 Allegedly, the patient's child had informed staff at at the school that he attends that Selene was hearing voices telling her to hurt this child.? The patient had allegedly shown up in the school at the school and shortly afterwards the police had picked her up and taken her to [facility].? The patient's ACI had received a call from the school counselor and the patient's son had reported to that counselor that the mother had been hearing voices telling her to harm herself and engaged in negative derogatory statements towards the patient.? The patient had revealed to the ACI that she had not been on her psychiatric medications for several days.? She was placed on a 96-hour hold and was placed on the neuropsychiatric unit for definitive treatment and evaluation.? She is unable to provide any reasonable detailed history on interview both briefly in the emergency department and upon arrival at the NPU. ? Psychiatric History: see below, most recent outpatient psychiatric visit was at [facility] in February 2022.? Previous records reveal psychiatric medications including Risperdal 2 mg 3 times a day Cymbalta 60 mg daily trazodone 100 mg at night Wellbutrin 150 mg in the morning and Cogentin 2 mg at night patient has a history of.? Multiple inpatient hospitalizations with a history of psychotic symptoms that appear to have been initially induced by methamphetamine. Current Medications: none Medical history: History of back pain Surgeries: None Allergies: No known drug allergies Family History: Father had schizophrenia and committed suicide she also had a history of bipolar in other family members. Drug and Alcohol History: per previous records, the patient had begun methamphetamine use periodically at the age of 18 throughout her 20s and reported heavy use beginning around the age of 37.? Previous records support that the patient continues to use methamphetamine periodically.? She had also reported active use of opiates beginning as a teenager through oral intake and examination of previous records indicate the patient has had some opiate related withdrawals symptoms.? Previous records also indicate that the patient had developed significant psychotic symptoms that persisted even in the absence of her methamphetamine use but particularly worse during active use.? Alcohol and marijuana has been used periodically since she was a teenager. Social History: See previous records below, as patient unable to provide any details. Previous Evaluation from November [address] Deluna at [facility] Chief Complaint: I was hearing voices and was hospitalized with suicidal ideations History of Present Illness: This is a 39-year-old white female who had no past psychiatric history previous to 2018.? She now carries a diagnosis of schizophrenia after being hospitalized a total of 4 times over the last 15 months including 3 times in [place] for 1 to 2 weeks at a time and a 4-day admission September 2019@[facility] for 4 days in the context of hearing voices having suicidal ideations and taking an overdose on Tylenol PM.? Patient says she started having problems hearing voices approximately 1 year ago.? This was in the context of heavy methamphetamine use.? She says she first used meth around age 18 and used off and on throughout her 20s but starting about 2 years ago her and her fianc? started daily heavy use and she subsequently developed hallucinations about a year into that use pattern.? Previous to this meth binge she had had no hallucinations or delusions in the past no previous psychiatric treatment or exposure.? She has a father who has a history of schizophrenia and committed suicide there is also bipolar in the family and is unclear if those are substance related as well.? What is clear is that her heavy methamphetamine use most likely solely responsible for her psychotic symptoms.? At this point she is diagnosed with schizophrenia for lack of a better term because she is been sober from meth since April 2019 however I would classify this is substance-induced psychosis that is now persistent.? She tells me she been sober from all substances since April 2019 when she was hospitalized in September she was positive for opioids tells me that she is also taking hydrocodone from the street at least 3 to 4 pills a day for a number of years.? She is also been a marijuana and alcohol user off and on throughout her life.? Currently she tells me that she is no longer hearing voices since starting consistently taking Haldol in September 2019.? She is sleeping 8 hours a night and denies any current suicidal thoughts overall psychiatric perspective she is doing quite well however she is having significant mood related problems related to her taking of Haldol most likely.? She exhibits significant head arm and leg movements throughout the appointment says this started in October which is about 1 month after she was taking Haldol consistently. History Past Psychiatric History: She been hospitalized 4 times in the last 15 months 3 times in [place] and one time [place] [facility] The admissions range from 4 days to 2 weeks for psychotic symptoms such as hearing voices and at times suicidal thoughts.? The voice that she tends to hear her multiple and varied and at times were commanding in nature. Medications been treated on Haldol, mirtazapine, and Cogentin. Family History: Father had schizophrenia and committed suicide she also had a history of bipolar in other family members. Past Medical History: She has some back pain Substance Use History: Methamphetamine: She first used at age 18 use periodically throughout her 20s at age 37 started using heavy daily use for approximately 2 years.? Last use was April 2019 Opioids: Started taking opioid pills as a teenager is used periodically throughout her life 3 to 4 pills a day for the last 4 years has been her most recent use.? She is currently taking some opioids by prescription for dental reasons but says she has not taking illicit opioids since April 2019 however she did test positive in September. Alcohol and marijuana: She is used periodically since he was a teenager but denies current use.? She has been a heavy user at times in the past ? Social History: Dropped out of school in eighth grade when she got ? and received her GED.? She had been and had one year of college she is been twice she has 3 children in total ages 21 and 17 a 17-year-old cu rrently lives with her father.? She also has a 5-year-old with her current fianc? who her mother has while the patient has been having substance and emotional difficulties.? 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 Previous Hospitalization at [facility] in November of 2018: Dr. Ayala Chief Complaint: I tried to kill myself. ? I got tired of hearing voices. HPI: History of present illness: Kendra Westfield is a 39-year-old woman who was admitted to the psychiatric unit after she apparently overdosed on Tylenol PM.? She is not considered a reliable informant as she does not provide coherent details of the events leading up to her overdose.? She says that she was hearing voices? but they were not commanding her to to end her life or to do anything dangerous.? She cannot give an explanation of the events leading to her overdose or her thinking at the time.? It is not even clear whether this was an overdose.? She denies suicidal or homicidal ideation at this time.? She reports that she hears voices that are multiple voices.? She thinks that she might know they are they are disguising her voice.? She says that they don't tell her what to do or give her commands but they seem to take over her body.? For example, they make her dance.? She would not elaborate.? She engages in Keiko and enjoyable activity.? She denies th at she is depressed though she is distressed over her current romantic relationship.? She has had a problem with abuse of a variety of substances in the past.? She is proud that she has gotten off of everything pain pills.? She takes hydrocodone 3-4 day .? Urine drug screen was positive only for opiates.? She is displaying no signs of withdrawal. Historically, the patient reports no mental health history up until approximately 7 months ago.? At that time she began hearing voices.? Prior to that she had never seen a psychiatrist or been in counseling.? She never been hospitalized.? 3 months ago she was hospitalized at [facility] for 3 weeks.? They told her that she had schizophrenia and started on her on medication for voices.? She said that they help but she eventually ran out of prescription.? She is now been off of it for a month.? She is not remember the name medication.? She does not remember any side effects.? She did take it twice a day.? She says that it was effective. Item? Value? ?Date Time Urine Opiates Screen? POSITIVE ng/mL H? 09/07/191515 Urine Barbiturates Screen? NEGATIVE ng/mL? 09/07/191515 Urine Phencyclidine Screen? NEGATIVE ng/mL? 09/07/19 1516 Urine Amphetamines Screen? NEGATIVE ng/mL? 09/07/19 1516 Urine Benzodiazepines Screen? NEGATIVE ng/mL? 09/07/19 1516 Urine Cocaine Screen? NEGATIVE ng/mL? 09/07/19 1516 Urine Marijuana (THC) Screen? NEGATIVE ng/mL? 09/07/19 1516 Ethyl Alcohol Level? < 10 mg/dL? 09/07/19 1515 Vital Signs Label? Value? ?Date Time Blood Pressure Assessment? 93/55 (67) 09/08/19 1236 ? Source? Automatic Cuff? ? Pulse? 101 09/08/19 1236 ? Location? Left Radial? ? Emergency room note: Chief Complaint: ANXIOUS, BEHAVIOR CHANGE and SUICIDAL THOUGHTS and DELUSIONAL and AUDITORY HALLUCINATIONS.? This started last night.? (39 yo female presents to ED with complaints of anxiety, suicidal thoughts, delusions, auditory hallucinations and bizarre behavior. The patient states she woke up and felt a little confused. She said she did not want to go to sleep after she took the Tylenol PM (she took 2). Her boyfriend states she has been hearing voices for a while. She and her boyfriend state she has plans of harming herself but has no specific plan. She said she thought people were coming after her so she got a little scared. She said sometimes the pain is overwhelming, it goes to the back and then to the top of her head. She then began rubbing the top of her head/picking at her head.). Mental health history: See above.? Family mental health history is negative. Social history: Patient grew up in [place].? She did not graduate from high school but got her GED and has taken some college classes.? She currently lives with her boyfriend out.? Their relationship is roosevelt.? She denies any history of physical or emotional abuse.? She alludes to the likelihood that he has a significant drug abuse problem.? However she is very unclear on their relationship.? She has no children.? She works 9 hours a week but did not understand her was that she worked. Legal history: Public record indicates no criminal activity.? However she has had considerable financial difficulty and appears to have had a lawsuit filed against her within the past month by [employer]. Past medical history: She is status post hysterectomy.? I refer you to her emergency room notes for further medical details. Hospital Course Hospital Course She slowly acclimated to the individual, group milieu therapies provided.? She presented doing to struggle with her addiction which has been a challenge. Drug screen was again positive for methamphetamine and opiates. She reported some challenging situations leading to her presentation including being off of her medications. We restarted her Abilify and Lexapro and continued trazodone to assist with sleep. She endorsed significant reduction in symptoms and worked with the social work team on her significant psychosocial challenges and follow- up treatment. They were able to secure to the fact that her housing was still viable. She had significant improvement and they were able to get her appropriate follow-up. She was able to contract for safety outside of the hospital prior to discharge.? During the hospitalization, patient had routine laboratory studies which were within normal limits except for few outliers.? Additionally there was a general medical evaluation which was also within normal limits and revealed no new acute processes. At the time of discharge, she denies psychosis or lethality.? Mood and anxiety were well managed.? Patient endorsed a plan to avoid all drugs of abuse and follow-up with the aftercare recommendations of the treatment team.? Patient was evaluated and deemed to be absent credible lethality, and was a voluntary patient no longer desiring inpatient hospitalization, so she was discharged. Involuntary Hold Information 96 Hour Hold: 96 Hour Involuntary Admission: No Mental Status Exam MSE Comments: This is an overweight white female appearing her stated age in hospital scrubs with adequate eye contact and improving grooming/ hygiene. Poor dentition. No abnormal movements except for mild psychomotor retardation. Cooperative with exam in no acute distress. Speech was slightly decreased rate and volume. Mood described as better, affect congruent. Thought process organized. Thought content: Patient denied suicidal or homicidal ideation, there were no delusions reported or noted, she denied auditory or visual hallucinations. Attention and concentration appeared intact and memory appeared reliable but none were for loly tested. She alert and oriented x3. Insight and judgment appeared limited and impulse control limited. Discharge Data Studies Completed and Pending: Laboratory Results WBC 8.3 10^3/uL (4.0- 10.0) 05/26/23 00:02 RBC 4.23 10^6/uL (4.1 -5.3) 05/26/23 00:02 Hgb 12.8 g/dL (11.5-1 5.3) 05/26/23 00:02 Hct 39.4 % (37.0-47.0 ) 05/26/23 00:02 MCV 93.1 fl (81-99) 05/26/23 00:02 MCH 30.3 pg (28.0-34. 0) 05/26/23 00:02 MCHC 32.5 g/dL (30.0-3 6.0) 05/26/23 00:02 RDW 13.6 % (12.1-15.1 ) 05/26/23 00:02 Plt Count 230 10^3/cmm (130 -400) 05/26/23 00:02 MPV 8.9 fL (7.4-10.4) 05/26/23 00:02 Neut % (Auto) 45.9 % 05/26/23 00:02 Lymph % (Auto) 47.0 % 05/26/23 00:02 Pope % (Auto) 4.8 % 05/26/23 00:02 Eos % (Auto) 1.3 % 05/26/23 00:02 Baso % (Auto) 0.6 % 05/26/23 00:02 Neut # (Auto) 3.79 10^3/uL (1.8 -7.7) 05/26/23 00:02 Lymph # (Auto) 3.9 10^3/uL (0.8- 4.8) 05/26/23 00:02 Pope # (Auto) 0.4 10^3/uL (0.2- 0.9) 05/26/23 00:02 Eos # (Auto) 0.1 10^3/uL (0.0- 0.8) 05/26/23 00:02 Baso # (Auto) 0.1 10^3/uL (0.0- 0.1) 05/26/23 00:02 Nucleated RBC % (a uto) 0 % 05/26/23 00:02 Nucleated RBCs # 0.0 /100WBC 05/26/23 00:02 Sodium 141 mmol/L (136-1 45) 05/26/23 00:02 Potassium 3.9 mmol/L (3.5-5 .1) 05/26/23 00:02 Chloride 105 mmol/L (98-10 7) 05/26/23 00:02 Carbon Dioxide 26 mmol/L (22-29) 05/26/23 00:02 Anion Gap 13.9 (5-19) 05/26/23 00:02 BUN 6 mg/dL (6-20) 05/26/23 00:02 Creatinine 1.1 mg/dL (0.5-0. 9) H 05/26/23 00:02 GFR Calculation 55.0 mL/min (90-1 30) L 05/26/23 00:02 Glucose 87 mg/dL (65-115) 05/26/23 00:02 Calculated Osmolal ity 289 mOsm/kg (285- 295) 05/26/23 00:02 Calcium 9.0 mg/dL (8.5-10 .5) 05/26/23 00:02 Total Bilirubin 0.2 mg/dL (0.15-1 .2) 05/26/23 00:02 AST 13 U/L (0-32) 05/26/23 00:02 ALT 45 U/L (0-33) H 05/26/23 00:02 Alkaline Phosphata se 54 U/L (35-105) 05/26/23 00:02 Total Protein 6.3 g/dL (6.6-8.7 ) L 05/26/23 00:02 Albumin 4.0 g/dL (3.5-5.2 ) 05/26/23 00:02 Globulin 2.3 g/dL (1.3-4.6 ) 05/26/23 00: TSH 0.63 uIU/mL (0.27 -4.20) 05/26/23 00:02 HCG, Qual Negative (Negati ve) 05/26/23 00: Urine Color Yellow (Yellow) 05/26/23 00:26 Urine Appearance Clear (CLEAR) 05/26/23 00:26 Urine pH 6 (5-7) 05/26/23 00:26 Ur Specific Gravit y 1.015 (1.005-1.0 30) 05/26/23 00: Urine Protein Neg (Negative) 05/26/23 00: Urine Glucose (UA) Norm (Normal) 05/26/23 00: Urine Ketones Negative (Negati ve) 05/26/23 00:26 Urine Blood 2+ (Negative) H 05/26/23 00:26 Urine Nitrate Negative (Negati ve) 05/26/23 00:26 Urine Bilirubin Neg (Negative) 05/26/23 00:26 Urine Urobilinogen Norm mg/dL (Negat nancy) 05/26/23 00:26 Ur Leukocyte Che ase Trace (Negative) H 05/26/23 00:26 Urine RBC 0-4 /hpf (0-2) H 05/26/23 00:26 Urine WBC 0-4 /hpf (0-5) H 05/26/23 00:26 Ur Squamous Epith Cells 5-10 /hpf (0-5) H 05/26/23 00:26 Amorphous Sediment Not Reportable 05/26/23 00:26 Urine Bacteria Trace /hpf (NONE) 05/26/23 00:26 Urine Mucus Trace /hpf 05/26/23 00:26 Salicylates 0.5 mg/dL (3-10) L 05/26/23 00:02 Urine Opiates Scre en Positive ng/mL (N egative) H 05/26/23 00:26 Acetaminophen 21.2 ug/mL (10-30 ) 05/26/23 00:02 Ur Barbiturates Sc reen Negative ng/mL (N egative) 05/26/23 00:26 Ur Phencyclidine S crn Negative ng/mL (N egative) 05/26/23 00:26 Ur Amphetamines Sc reen Positive ng/mL (N egative) H 05/26/23 00:26 U Benzodiazepines Scrn Negative ng/mL (N egative) 05/26/23 00:26 Urine Cocaine Scre en Negative ng/mL (N egative) 05/26/23 00:26 U Marijuana (THC) Screen Negative ng/mL (N egative) 05/26/23 00:26 Ethyl Alcohol < 10 mg/dL (0-10) 05/26/23 00:02 Vitals: Last Vital Signs Temp 98.0 F 05/30/23 14:00 Pulse 101 H 05/30/23 14:00 Resp 17 05/30/23 14:00 BP 109/65 05/30/23 14:00 Pulse Ox 98 05/30/23 14:00 O2 Del Method Room Air 05/30/23 06:00 Discharge Plan Discharge Patient Disposition: Home Condition: Stable Prescriptions: New trazodone 50 mg Tablet 50 mg PO BEDTIME PRN (Reason: Sleep) 30 Days Qty: 30 1RF escitalopram oxalate 10 mg Tablet 10 mg PO DAILY 30 Days Qty: 30 1RF aripiprazole 10 mg Tablet 10 mg PO DAILY 30 Days Qty: 30 1RF No Action ibuprofen 800 mg tablet 800 mg PO TID PRN (Reason: pain) Qty: 60 0RF propranolol 10 mg tablet 10 mg PO BID Qty: 60 2RF Discharge Orders: Discharge Order (Routine); Ordered 05/30/23 Ordered By: Jarett Ayala Referrals: [facility] [Other] - 1-3 days (You have been referred. ) [facility] [Outside] - 06/11/23 11:30 am (Initial appointent. ) Lottie Landry FNP-C [Nurse Practitioner] - 06/01/23 9:20 am (Establish care) Discharge Diet: Regular Discharge Activity: Resume usual activity Patient Instructions: Opioid Safety, Pain Management Discharge Attestations NPU Time Spent in Discharge Care*: less than 30 min Specific Discharge Activities: Specific discharge activities: educating patient, discussing with family caseworker/social workers/dc planners, documenting/other paperwork and evaluating patient/reviewing data Coding Level of Care Code Acute [facility] DC note Diagnoses Suicidal ideation R45.851 Opioid use disorder, moderate, dependence F11.20 Amphetamine use disorder, severe, in early remission F15.21 Schizophrenia F20.9
[2023-05-30 15:02] VITALS: BP 109/65; PULSE 101; RESP 17; TEMP 36.7; O2SAT 98
== END 2023-05-30 17:44 | disposition home or self-care (01) | DRG 885 ==
LOC: ER 05-26 00:51 → NP 05-26 01:50
PROVIDERS: Admitting Provider Psychiatry & Neurology Psychiatry; Emergency Provider Nurse Practitioner Family; Visit Provider Psychiatry & Neurology Psychiatry
DX: F20.9 Schizophrenia, unspecified (principal); R45.851 Suicidal ideations; F15.20 Other stimulant dependence, uncomplicated; F11.20 Opioid dependence, uncomplicated; F10.90 Alcohol use, unspecified, uncomplicated; Z81.8 Family history of other mental and behavioral disorders; F17.210 Nicotine dependence, cigarettes, uncomplicated
CPT/HCPCS: 36415; 80053; 80306; 80307; 81001; 84443; 84703; 85025; 97165; 99238; 99285

== ENCOUNTER → 2023-07-10 11:20 | Outpatient (BNVA) | payer MEDICAID, SELFPAY | PROVIDERS: PCP Nurse Practitioner Family; Visit Provider Internal Medicine Cardiovascular Disease | DX: R06.09 Other forms of dyspnea (principal); R07.9 Chest pain, unspecified | CPT/HCPCS: 93005 ==

== ENCOUNTER 2023-07-30 13:11 | Outpatient (CLI) | payer MEDICAID, SELFPAY ==
--- NOTE | 2023-07-30 13:30 | USCV_ITS ---
Kendra Tucker Age: 43 Gender: F : 1980 Exam Date: 07/30/2023 13:48 Ordering Phys: Darvin Rangel MD ([email or web address]) Technologist: Miladys Oneil Exam Location[place] [facility] [place]: CP, palpitations BP: 92 / 62 HR: 74 Rhythm: Sinus Technical Quality: Good MEASUREMENTS (Male / Female) Normal Values 2D ECHO LV Diastolic Diameter PLAX 4.4 cm 4.2 - 5.9 / 3.9 - 5.3 cm LV Systolic Diameter PLAX 2.6 cm IVS Diastolic Thickness 0.7 cm 0.6 - 1.0 / 0.6 - 0.9 cm IVS Systolic Thickness 1.2 cm LVPW Diastolic Thickness 0.9 cm 0.6 - 1.0 / 0.6 - 0.9 cm LVPW Systolic Thickness 1.0 cm LVOT Diameter 2.0 cm LV Ejection Fraction 2D Teich 71.3 % LV Ejection Fraction MOD 2C 63.8 % LV Ejection Fraction 2C AL 64.3 % LA Diameter 2.7 cm LA Width 2.4 cm LA Height 2.9 cm RA Width 2.9 cm RA Height 3.3 cm Aorta at Sinotubular Diameter 2.8 cm IVC Diameter 1.0 cm M-MODE Aortic Annulus Diameter 2.9 cm LA Ao Ratio MM 1.0 MV E Point Septal Separation 0.5 cm DOPPLER AV Peak Velocity 104.0 cm/s LVOT Peak Velocity 96.0 cm/s AV Area Cont Eq vti 3.0 cm squared AV Area Cont Eq pk 2.9 cm squared MV Peak Velocity 121.0 cm/s MV Area PHT 3.6 cm squared Mitral E to A Ratio 1.5 MV E' Velocity 67.5 cm/s Mitral E to MV E' Ratio 4.5 Mitral E to LV E' Lateral Ratio 3.1 Mitral E to LV E' Septal Ratio 8.2 TR Peak Velocity 144.0 cm/s TR Peak Gradient 8.3 mmHg Right Atrial Pressure 5.0 mmHg Pulmonary Artery Systolic Pressu 13.3 mmHg PV Peak Velocity 78.0 cm/s RV Acceleration Time 0.1 s RV Ejection Time 0.3 s RV AcT/ET 0.4 FINDINGS Left Ventricle Normal left ventricular size and systolic function, EF 62 %. No regional wall motion abnormalities. Right Ventricle The right ventricle is normal in size and function. Right Atrium The right atrium is normal in size. Left Atrium The left atrium is normal in size. Mitral Valve No gross morphologic abnormalities Aortic Valve No gross morphologic abnormalities Tricuspid Valve No gross morphologic abnormalities Pulmonic Valve No gross morphologic abnormalities Pericardium Normal pericardium without effusion. Aorta Normal aortic annulus size. IVC Normal inferior vena cava. CONCLUSIONS Normal left ventricular size and systolic function, EF 62 %. No regional wall motion abnormalities. Normal cardiac chamber sizes. No significant valvular abnormalities. No intracardiac shunts by color-flow Doppler examination . There is no pericardial effusion. There are no intracardiac masses. No similar previous studies are available for comparison Dr Darvin Rangel MD FACC (Electronically Signed) Final Date: 02 August 2023 08:46 S
== END 2023-07-30 13:12 | disposition home or self-care (01) ==
PROVIDERS: PCP Nurse Practitioner Family; Visit Provider Internal Medicine Cardiovascular Disease
DX: R07.9 Chest pain, unspecified (principal); R00.2 Palpitations
CPT/HCPCS: 93306

== ENCOUNTER → 2025-04-21 09:06 | Outpatient (BNVA) | payer MEDICAID, SELFPAY | PROVIDERS: PCP Nurse Practitioner Family; Visit Provider Clinical Nurse Specialist Adult Health | DX: I10 Essential (primary) hypertension (principal); F20.9 Schizophrenia, unspecified | CPT/HCPCS: 80053 ==

== ENCOUNTER → 2025-05-28 14:42 | Outpatient (BNVA) | payer MEDICAID, SELFPAY | PROVIDERS: PCP Clinical Nurse Specialist Adult Health; Visit Provider Clinical Nurse Specialist Adult Health | DX: R30.0 Dysuria (principal) | CPT/HCPCS: 81000; 87086 ==

== ENCOUNTER 2025-09-23 09:27 | Outpatient (CLI) | payer MEDICAID, SELFPAY ==
--- NOTE | 2025-09-23 09:35 | XR_ITS ---
WS: [email or web address] XR cervical spine 3V* [id number] REASON FOR EXAM: DEGENERATIVE DISC DISEASE FINDINGS: Normal lordosis. No significant vertebral body compression deformity or focal lesion. Moderate narrowing of the C6-C7 disc space with mild to moderate endplate sclerosis and osteophytosis. No significant listhesis. XR/XR cervical spine 3V* [id number] IMPRESSION: Mild cervical spondylosis.
--- NOTE | 2025-09-23 09:36 | XR_ITS ---
WS: [email or web address] XR lumbar spine 2-3V* [id number] REASON FOR EXAM: DEGENERATION INTERVERTEBRAL DISC FINDINGS: Moderate rotatory dextroscoliosis. Mild exaggeration of the lordosis. No significant vertebral body compression deformity or focal vertebral body lesion. Intervertebral disc spaces are intact and relatively well preserved. Minimal narrowing of the L5-S1 disc base. Minimal endplate sclerosis and osteophytosis L1-L5. No spondylolysis. No significant spondylolisthesis. Incidental note of 3 mm left intrarenal calculus. XR/XR lumbar spine 2-3V* [id number] IMPRESSION: Mild degenerative spondylosis.
--- NOTE | 2025-09-23 09:36 | XR_ITS ---
WS: [email or web address] XR thoracic spine 2V [id number] REASON FOR EXAM: DEGENERATION INTERVERTEBRAL DISC FINDINGS: Minimal dextroscoliosis of the thoracic spine. No significant kyphosis. No significant compression deformity or focal lesion of the thoracic vertebrae. Minimal endplate sclerosis and osteophytosis in the midthoracic spine with preservation of the disc spaces. XR/XR thoracic spine 2V [id number] IMPRESSION: Minimal degenerative spondylosis.
== END 2025-09-23 09:28 | disposition home or self-care (01) ==
PROVIDERS: PCP Clinical Nurse Specialist Adult Health; Visit Provider General Practice
DX: M50.30 Other cervical disc degeneration, unspecified cervical region (principal); N20.0 Calculus of kidney; M47.816 Spondylosis without myelopathy or radiculopathy, lumbar region; M50.323 Other cervical disc degeneration at C6-C7 level; M25.78 Osteophyte, vertebrae; M41.82 Other forms of scoliosis, cervical region
CPT/HCPCS: 72040; 72070; 72100